=== PATIENT | male | born 1960 | race Caucasian/White ===

== ENCOUNTER 2018-06-05 12:31 | Emergency (ER) | payer MEDICARE, OTHER ==
[2018-06-05 12:48] VITALS: BP 130/77; PULSE 91; RESP 18; TEMP 98
--- NOTE | 2018-06-05 13:24 | ED ---
General Adult HPI - General Chief complaint: Extremity Injury, Lower Stated complaint: RT HIP PAIN, STATES PIN IS COMING OUT Time Seen by Provider: 06/05/18 13:02 Source: patient, RN notes reviewed Mode of arrival: ambulatory Limitations: no limitations - History of Present Illness Initial comments: Patient 57-year-old male presented to the emergency room today with a chief complaint of a pain to the right hip. He does admit that he had a fracture of the right hip and had a maynor placed in 2005. He states that the pain has come loose and needs to be taken out. He does admit that he went to the urgent care recently had an x-ray obtained and was advised that he needs follow-up orthopedics. States came here to the emergency room for further evaluation. Patient denies any other complaints or symptoms. Denies any injury to the area. Patient denies any recent fever, chills, shortness of breath, chest pain, back pain, abdominal pain, nausea or vomiting, numbness or tingling, changes, or any other complaints. - Related Data Allergies Allergy/AdvReac Type Severity Reaction Status Date / Time No Known Allergies Allergy Verified 06/05/18 12:48 Review of Systems ROS Statement: Those systems with pertinent positive or pertinent negative responses have been documented in the HPI. ROS Other: All systems not noted in ROS Statement are negative. Past Medical History Additional Past Medical History / Comment(s): chronic back and neck pain History of Any Multi-Drug Resistant Organisms: None Reported Past Surgical History: Orthopedic Surgery Additional Past Surgical History / Comment(s): right hip surgery Past Psychological History: No Psychological Hx Reported Smoking Status: Current every day smoker Past Alcohol Use History: None Reported Past Drug Use History: None Reported General Exam - General Exam Comments Initial Comments: General: The patient is awake and alert, in no distress, and does not appear acutely ill. Neck: The neck is supple, there is no tenderness or JVD. Musculoskeletal: Patient does have abnormal appearance of the right hip with skin tenting of part of possible prostheses. Local tenderness. Full range motion. Sensation intact. Neurological: A&O x 3. CN II-XII intact, There are no obvious motor or sensory deficits. Coordination appears grossly intact. Speech is normal. Skin: Skin is warm and dry and no rashes or lesions are noted. Psychiatric: Normal mood and affect. Limitations: no limitations Course Vital Signs 06/05/18 12:43 Temperature 98.0 F Pulse Rate 91 Respiratory 18 Rate Blood Pressure 130/77 O2 Sat by Pulse 100 Oximetry Medical Decision Making - Medical Decision Making Patient's x-rays reviewed and are that appears to have come loose. Results were discussed with the patient. He is advised that he needs to follow up with his orthopedic doctor. Disposition Clinical Impression: Hip pain Narrative: loosening of hardware of right hip Disposition: HOME SELF-CARE Instructions: Hip Pain (ED) Additional Instructions: Please follow-up with orthopedic doctor over the next 2 days as discussed. Please return to emergency room for any other concerns. Is patient prescribed a controlled substance at d/c from ED?: No Referrals: None,Stated [Primary Care Provider] - 1-2 days Mann Kline MD [REFERRING] - 1-2 days Time of Disposition: 14:08
--- NOTE | 2018-06-05 13:48 | XR ---
EXAMINATION TYPE: AP view pelvis and 2 views right hip DATE OF EXAM: 06/05/2018 COMPARISON: NONE HISTORY: 57-year-old male right hip pain for 2 weeks, surgery in 2005. FINDINGS: Osteopenia. Mild degenerative change of both hips. No displaced fractures are identified. Antegrade i ntramedullary nail within the right femur with hip screw fixation. There hip screw has backed out and tents the overlying skin surface of the lateral upper thigh. The tip of the screw is located nearly 4.5 cm away from the central articular surface of the femoral head. No displaced fractures. IMPRESSION: Osteopenia without displaced fractures. Mild degenerative change of both hips. Previous intertrochanteric fixation of the proximal right femur. There seems to be complication with the hip screw backed out and the proximal portion of the screw tenting the overlying skin surface.
--- NOTE | 2018-06-05 14:10 | ED ---
Disposition Clinical Impression: Hip pain Disposition: HOME SELF-CARE Instructions: Hip Pain (ED) Additional Instructions: Please follow-up with orthopedic doctor over the next 2 days as discussed. Please return to emergency room for any other concerns. Is patient prescribed a controlled substance at d/c from ED?: No Referrals: None,Stated [Primary Care Provider] - 1-2 days
== END 2018-06-05 14:15 | disposition home or self-care (01) ==
LOC: EC 12:31
DX: M25.551 Pain in right hip (principal); T84.030A Mechanical loosening of internal right hip prosthetic joint, initial encounter; F17.200 Nicotine dependence, unspecified, uncomplicated
CPT/HCPCS: 73502; 99283

== ENCOUNTER 2020-07-29 15:52 | Observation (INO) | payer MEDICARE ==
[2020-07-29] MEDS ORDERED: DILTIAZEM DRIP BOLUS FROM BAG 1 MG SOLN IV ONE (16:08)
[2020-07-29 16:21] LABS: Basophils # (A) 0.1 k/uL (0-0.2); Basophils % (A) 1 %; Eosinophils # (A) 0.1 k/uL (0-0.7); Eosinophils % (A) 1 %; HCT 45.6 % (39.0-53.0); HGB 14.7 gm/dL (13.0-17.5); Lymphocytes # (A) 2.4 k/uL (1.0-4.8); Lymphocytes % (A) 32 %; MCH 30.8 pg (25.0-35.0); MCHC 32.3 g/dL (31.0-37.0); MCV 95.4 fL (80.0-100.0); Mean Platelet Volume 7.4; Monocytes # (A) 0.4 k/uL (0-1.0); Monocytes % (A) 5 %; Neutrophils # (A) 4.4 k/uL (1.3-7.7); Neutrophils % (A) 58 %; Platelet Count 222 k/uL (150-450); RBC 4.78 m/uL (4.30-5.90); RDW 13.5 % (11.5-15.5); WBC 7.5 k/uL (3.8-10.6)
[2020-07-29] MEDS: DILTIAZEM 125 MG in SODIUM CHLORIDE 0.9% 100 ML IV SCH (16:28)
[2020-07-29 16:31] LABS: ALT 18 U/L (4-49); AST 46 U/L (17-59); African American GFR (CKD) >90 (>60 ml/min/1.73 sqM); Albumin 4.2 g/dL (3.5-5.0); Alkaline Phosphatase 80 U/L (38-126); Anion Gap 6 mmol/L; Blood Urea Nitrogen 13 mg/dL (9-20); Calcium 8.8 mg/dL (8.4-10.2); Carbon Dioxide 28 mmol/L (22-30); Chloride 103 mmol/L (98-107); Glucose 143 mg/dL (74-99); Magnesium 2.1 mg/dL (1.6-2.3); Non-African American GFR(CKD) >90 (>60 ml/min/1.73 sqM); Potassium 4.4 mmol/L (3.5-5.1); Sodium 137 mmol/L (137-145); Total Bilirubin 0.5 mg/dL (0.2-1.3); Total Protein 7.5 g/dL (6.3-8.2)
--- NOTE | 2020-07-29 16:33 | XR ---
EXAMINATION TYPE: XR chest 2V DATE OF EXAM: 07/29/2020 COMPARISON: 01/30/2012 and 05/12/2016 HISTORY: 59-year-old male dysrhythmia, shortness of breath TECHNIQUE: AP and lateral views FINDINGS: Heart normal size. Aorta within normal limits. Some upper lobe scarring is new from 2011 with some up ayala hilar retraction and pleural parenchymal opacities. Mid and lower lungs remain clear. Hyperinfla tion. IMPRESSION: 1. COPD with marked emphysema. 2. Apical pleural parenchymal opacities are new compared to 2016. Probable scarring. Nonemergent foll ow-up CT recommended to provide more detailed parenchymal assessment given the patient's increased ri sk for development of lung cancer.
[2020-07-29 16:36] LABS: D-Dimer 0.54 mg/L FEU (<0.60); INR 0.9 (<1.2); Prothrombin Time 9.7 sec (9.0-12.0)
--- NOTE | 2020-07-29 16:40 | ED ---
SOB HPI - General Chief Complaint: Shortness of Breath Stated Complaint: Tachycardia, SOB Time Seen by Provider: 07/29/20 16:05 Source: patient, EMS Mode of arrival: EMS Limitations: no limitations - History of Present Illness Initial Comments: Patient is a 59-year-old male with history of chronic neck and back pain and presents emergency room with reported shortness of breath. He reports that his symptoms are sudden onset 1 hour ago while he was in an elevator. States he felt so lightheaded that when he got out of the elevator he had to lay down. No history of similar in the past. Denies previous history of cardiac or pulmonary issues. Denies any chest pain. No ripping or tearing sensation to his back. Admits to palpitations. No nausea or vomiting. Denies any lower extremity edema. No history of irregular heart rhythms. Patient is a smoker. No history of DVT or PE. No recent travel. No other alleviating, Perceptin or modifying factors - Related Data Home Medications Medication Instructions Recorded Confirmed oxyCODONE HCL [OxyIR] 5 mg PO QID 07/29/20 07/29/20 Previous Rx's Medication Instructions Recorded Apixaban [Eliquis] 5 mg PO BID #60 tab 07/30/20 Allergies Allergy/AdvReac Type Severity Reaction Status Date / Time No Known Allergies Allergy Verified 07/29/20 16:59 Review of Systems ROS Statement: Those systems with pertinent positive or pertinent negative responses have been documented in the HPI. ROS Other: All systems not noted in ROS Statement are negative. Past Medical History Additional Past Medical History / Comment(s): chronic back and neck pain History of Any Multi-Drug Resistant Organisms: None Reported Past Surgical History: Orthopedic Surgery Additional Past Surgical History / Comment(s): right hip surgery Past Psychological History: No Psychological Hx Reported Smoking Status: Current every day smoker Past Alcohol Use History: None Reported, Occasional - Past Family History Father Family Medical History: Myocardial Infarction ([place]) Brother(s) Family Medical History: Myocardial Infarction ([place]) General Exam Limitations: no limitations General appearance: alert, in no apparent distress Head exam: Present: atraumatic, normocephalic, normal inspection Eye exam: Present: normal appearance, PERRL, EOMI. Absent: scleral icterus, conjunctival injection, periorbital swelling ENT exam: Present: normal exam, mucous membranes moist Neck exam: Present: normal inspection. Absent: tenderness, meningismus, lymphadenopathy Respiratory exam: Present: normal lung sounds bilaterally. Absent: respiratory distress, wheezes, rales, rhonchi, stridor Cardiovascular Exam: Present: tachycardia, irregular rhythm GI/Abdominal exam: Present: soft, normal bowel sounds. Absent: distended, tenderness, guarding, rebound, rigid Extremities exam: Present: normal inspection, full ROM, normal capillary refill. Absent: tenderness, pedal edema, joint swelling, calf tenderness Back exam: Present: normal inspection Neurological exam: Present: alert, oriented X3, CN II-XII intact Psychiatric exam: Present: normal affect, normal mood Skin exam: Present: warm, dry, intact, normal color. Absent: rash Course Vital Signs 07/29/20 07/29/20 07/29/20 16:04 16:42 17:53 Temperature 97.9 F Pulse Rate 154 H 108 H Pulse Rate [ Pulse Oximetery ] Respiratory 18 18 16 Rate Blood Pressure 116/83 111/75 Blood Pressure [Right Arm] O2 Sat by Pulse 100 100 Oximetry 07/29/20 07/29/20 07/30/20 20:00 23:13 03:12 Temperature 97.8 F 97.8 F 97.3 F L Pulse Rate Pulse Rate [ 95 79 74 Pulse Oximetery ] Respiratory 16 16 12 Rate Blood Pressure Blood Pressure 109/69 117/67 99/68 [Right Arm] O2 Sat by Pulse 99 99 Oximetry 07/30/20 07/30/20 07/30/20 04:00 05:26 08:00 Temperature Pulse Rate Pulse Rate [ 75 65 Pulse Oximetery ] Respiratory 12 12 16 Rate Blood Pressure Blood Pressure 110/68 110/66 [Right Arm] O2 Sat by Pulse 99 98 Oximetry 07/30/20 07/30/20 09:24 12:00 Temperature 97.5 F L 97.4 F L Pulse Rate Pulse Rate [ 95 Pulse Oximetery ] Respiratory 18 Rate Blood Pressure Blood Pressure 107/74 [Right Arm] O2 Sat by Pulse 99 Oximetry Medical Decision Making - Medical Decision Making Upon arrival patient is placed into room 6. A thorough history and physical exam was performed. Patient is hooked to continuous pulse ox and cardiac monitoring. 12-lead EKG was performed which demonstrates the patient is in A. fib with RVR. Peripheral IV is established. Patient was initiated on a Cardizem drip with a Cardizem bolus of 10 mg. Laboratory studies were conducted and the patient was sent for chest x-ray. Laboratory studies are reviewed. TSH is 0.3. T4 is 1.48. Chest x-ray demonstrates COPD with marked emphysema. Discuss results with the patient. Recommend admission to the hospital for cardiac consultation. Patient will be maintained on a Cardizem drip. Patient is also initiated on heparin as he has no contra indications. Patient remained in stable condition awaiting a bed on the floor - Lab Data Result diagrams: 07/31/20 06:30 07/31/20 06:30 Lab Results 07/29/20 07/29/20 07/29/20 Range/Units 16:09 16:09 16:09 WBC 7.5 (3.8-10.6) k/uL RBC 4.78 (4.30-5.90) m/uL Hgb 14.7 (13.0-17.5) gm/dL Hct 45.6 (39.0-53.0) % MCV 95.4 (80.0-100.0) fL MCH 30.8 (25.0-35.0) pg MCHC 32.3 (31.0-37.0) g/dL RDW 13.5 (11.5-15.5) % Plt Count 222 (150-450) k/uL Neutrophils % 58 % Lymphocytes % 32 % Monocytes % 5 % Eosinophils % 1 % Basophils % 1 % Neutrophils # 4.4 (1.3-7.7) k/uL Lymphocytes # 2.4 (1.0-4.8) k/uL Monocytes # 0.4 (0-1.0) k/uL Eosinophils # 0.1 (0-0.7) k/uL Basophils # 0.1 (0-0.2) k/uL PT 9.7 (9.0-12.0) sec INR 0.9 (<1.2) APTT 21.1 L (22.0-30.0) sec D-Dimer 0.54 (<0.60) mg/L FEU Sodium 137 (137-145) mmol/L Potassium 4.4 (3.5-5.1) mmol/L Chloride 103 (98-107) mmol/L Carbon Dioxide 28 (22-30) mmol/L Anion Gap 6 mmol/L BUN 13 (9-20) mg/dL Creatinine 0.73 (0.66-1.25) mg/dL Est GFR (CKD-EPI)AfAm >90 (>60 ml/min/1.73 sqM) Est GFR (CKD-EPI)NonAf >90 (>60 ml/min/1.73 sqM) Glucose 143 H (74-99) mg/dL Calcium 8.8 (8.4-10.2) mg/dL Magnesium 2.1 (1.6-2.3) mg/dL Total Bilirubin 0.5 (0.2-1.3) mg/dL AST 46 (17-59) U/L ALT 18 (4-49) U/L Alkaline Phosphatase 80 (38-126) U/L Troponin I (0.000-0.034) ng/mL Total Protein 7.5 (6.3-8.2) g/dL Albumin 4.2 (3.5-5.0) g/dL TSH 0.341 L (0.465-4.680) mIU/L Free T4 1.48 (0.78-2.19) ng/dL 07/29/20 Range/Units 16:09 WBC (3.8-10.6) k/uL RBC (4.30-5.90) m/uL Hgb (13.0-17.5) gm/dL Hct (39.0-53.0) % MCV (80.0-100.0) fL MCH (25.0-35.0) pg MCHC (31.0-37.0) g/dL RDW (11.5-15.5) % Plt Count (150-450) k/uL Neutrophils % % Lymphocytes % % Monocytes % % Eosinophils % % Basophils % % Neutrophils # (1.3-7.7) k/uL Lymphocytes # (1.0-4.8) k/uL Monocytes # (0-1.0) k/uL Eosinophils # (0-0.7) k/uL Basophils # (0-0.2) k/uL PT (9.0-12.0) sec INR (<1.2) APTT (22.0-30.0) sec D-Dimer (<0.60) mg/L FEU Sodium (137-145) mmol/L Potassium (3.5-5.1) mmol/L Chloride (98-107) mmol/L Carbon Dioxide (22-30) mmol/L Anion Gap mmol/L BUN (9-20) mg/dL Creatinine (0.66-1.25) mg/dL Est GFR (CKD-EPI)AfAm (>60 ml/min/1.73 sqM) Est GFR (CKD-EPI)NonAf (>60 ml/min/1.73 sqM) Glucose (74-99) mg/dL Calcium (8.4-10.2) mg/dL Magnesium (1.6-2.3) mg/dL Total Bilirubin (0.2-1.3) mg/dL AST (17-59) U/L ALT (4-49) U/L Alkaline Phosphatase (38-126) U/L Troponin I <0.012 (0.000-0.034) ng/mL Total Protein (6.3-8.2) g/dL Albumin (3.5-5.0) g/dL TSH (0.465-4.680) mIU/L Free T4 (0.78-2.19) ng/dL - EKG Data EKG Comments: EKG demonstrates A. fib with a rapid ventricular response. Rate of 151. QRS 88. QTC of 472. Peaked T waves in V3 through the 5. No acute ST segment elevation Critical Care Time Critical Care Time: Yes Critical Care Time: 35 minutes Disposition Clinical Impression: Atrial fibrillation with RVR Disposition: ADMITTED IP TO THIS HOSP Condition: Stable Is patient prescribed a controlled substance at d/c from ED?: No Decision to Admit Reason: Admit from EC Decision Date: 07/29/20 Decision Time: 17:24
[2020-07-29 16:46] LABS: Partial Thromboplastin Time 21.1 sec (22.0-30.0)
[2020-07-29] MEDS ORDERED: NALOXONE 0.4 MG/ML 1 ML VIAL IV PRN (17:24)
[2020-07-29] MEDS ORDERED: HEPARIN SODIUM,PORCINE 5,000 UNIT/ML 1 ML VIAL IV ONE (17:25)
[2020-07-29] MEDS ORDERED: HEPARIN SODIUM,PORCINE 5,000 UNIT/ML 1 ML VIAL IV PRN (17:25)
[2020-07-29] MEDS ORDERED: HEPARIN SOD,PORK IN 0.45% NACL 25,000 UNIT in 0.45% NACL 1 250ML.BAG IV SCH (17:30)
[2020-07-29 17:39] LABS: T4, Free (Free Thyroxine) 1.48 ng/dL (0.78-2.19)
[2020-07-29] MEDS: SODIUM CHLORIDE 0.9% 1,000 ML IV SCH (17:53)
[2020-07-30 09:20] LABS: Basophils # (A) 0.1 k/uL (0-0.2); Basophils % (A) 1 %; Eosinophils # (A) 0.1 k/uL (0-0.7); Eosinophils % (A) 1 %; HCT 42.7 % (39.0-53.0); HGB 13.7 gm/dL (13.0-17.5); Lymphocytes # (A) 2.6 k/uL (1.0-4.8); Lymphocytes % (A) 33 %; MCH 30.9 pg (25.0-35.0); MCV 96.6 fL (80.0-100.0); Mean Platelet Volume 7.5; Monocytes # (A) 0.4 k/uL (0-1.0); Monocytes % (A) 5 %; Neutrophils # (A) 4.7 k/uL (1.3-7.7); Neutrophils % (A) 59 %; Platelet Count 194 k/uL (150-450); RBC 4.43 m/uL (4.30-5.90); RDW 13.6 % (11.5-15.5); WBC 7.9 k/uL (3.8-10.6)
[2020-07-30 09:31] LABS: Partial Thromboplastin Time 50.9 sec (22.0-30.0); Prothrombin Time 10.2 sec (9.0-12.0)
[2020-07-30 09:37] LABS: African American GFR (CKD) >90 (>60 ml/min/1.73 sqM); Anion Gap 5 mmol/L; Blood Urea Nitrogen 11 mg/dL (9-20); Calcium 8.1 mg/dL (8.4-10.2); Carbon Dioxide 28 mmol/L (22-30); Chloride 102 mmol/L (98-107); Glucose 89 mg/dL (74-99); Non-African American GFR(CKD) >90 (>60 ml/min/1.73 sqM); Potassium 4.4 mmol/L (3.5-5.1); Sodium 135 mmol/L (137-145)
--- NOTE | 2020-07-30 10:44 | P.HPIM ---
History of Present Illness This is a pleasant 59 years old male with past medical history of chronic back and neck pain status post orthopedic surgery. Presents because of dyspnea and lightheadedness and feeling feverish with sweating of one-day duration, however patient does not measure his temperature. Patient denies chest pain, no change in urine or bowel habits. No loss of consciousness or syncope. No weakness or numbness. No gait abnormality. Patient is not on home oxygen. He smokes about 1 pack per day, his consult and he agrees to quit, he declines nicotine patch On admission patient was tachycardic at 154, currently heart rate is 70s, re spiratory vitals are stable, blood pressure 110/68. Labs including CBC, BMP, liver enzymes are unremarkable. D-dimer is negative at 0.54. Troponin is negative less than 0.012. TSH slightly low at 0.34 with with normal free T4 at 1.48 EKG showing A. fib with RVR at 151 chest x-ray: apical pleural parenchymal opacity of the new compared to 2016, probable scarring. Nonemergent follow-up CT recommended to provide more detailed parenchymal assessment Patient stated that he wanted to leave AMA, I told the patient about his lesions of A. fib and apical thickening concerning for cancer, risks of leaving AMA explained to the patient extensively including but not limited to the risk of stroke, rapid heart rate, heart attack, paralysis, or permanent damage, missing cancer, organ dysfunction and/or he verbalized understanding, however when I told him if there is any think I can do to stop him from leaving AMA he said yes if you can give me male. So diet is ordered for him and discussed with the staff. Patient agrees to stay in the hospital now. It looks like patient has capacity to make medical decision based upon my evaluation. Patient also understands if he leans AMA later then no prescription will be provided for him and he verbalized understanding Review of Systems CONSTITUTIONAL: No fever, no malaise, no fatigue. HEENT: No recent visual problems or hearing problems. Denied any sore throat. CARDIOVASCULAR: No orthopnea, PND, no palpitations, no syncope. PULMONARY: No shortness of breath, no cough, no hemoptysis. GASTROINTESTINAL: No diarrhea, no nausea, no vomiting, no abdominal pain. Normoactive bowel sounds. NEUROLOGICAL: No headaches, no weakness, no numbness. HEMATOLOGICAL: Denies any bleeding or petechiae. GENITOURINARY: Denies any burning micturition, frequency, or urgency. MUSCULOSKELETAL/RHEUMATOLOGICAL: Denies any joint pain, swelling, or any muscle pain. ENDOCRINE: Denies any polyuria or polydipsia. Past Medical History Additional Past Medical History / Comment(s): chronic back and neck pain History of Any Multi-Drug Resistant Organisms: None Reported Past Surgical History: Orthopedic Surgery Additional Past Surgical History / Comment(s): right hip surgery Past Anesthesia/Blood Transfusion Reactions: No Reported Reaction Past Psychological History: No Psychological Hx Reported Smoking Status: Current every day smoker Past Alcohol Use History: Occasional Past Drug Use History: Marijuana - Past Family History Father Family Medical History: Myocardial Infarction ([place]) Brother(s) Family Medical History: Myocardial Infarction ([place]) Medications and Allergies Home Medications Medication Instructions Recorded Confirmed Type oxyCODONE HCL [OxyIR] 5 mg PO QID 07/29/20 07/29/20 History Allergies Allergy/AdvReac Type Severity Reaction Status Date / Time No Known Allergies Allergy Verified 07/29/20 16:59 Physical Exam Vitals: Vital Signs Temp Pulse Pulse Resp BP BP Pulse Ox 07/30/20 05:26 75 12 110/68 99 07/30/20 04:00 12 07/30/20 03:12 97.3 F L 74 12 99/68 99 07/29/20 23:13 97.8 F 79 16 117/67 99 07/29/20 20:00 97.8 F 95 16 109/69 07/29/20 17:53 108 H 16 111/75 100 07/29/20 16:42 18 07/29/20 16:04 97.9 F 154 H 18 116/83 100 Intake and Output 07/29/20 07/30/20 07/30/20 22:59 06:59 14:59 Intake Total 237.012 Balance 237.012 Intake: Intake, IV Titration 237.012 Amount Diltiazem 125 mg In 40 Sodium Chloride 0.9% 100 ml @ 5 MG/HR 5 mls/hr IV .Q24H [facility] Rx#:[id number] Heparin Sod,Pork in 0.45% 37.012 NaCl 25,000 unit In 0.45 % NaCl 1 250ml.bag @ 12 UNITS/KG/HR 5.443 mls/hr IV .Q24H [facility] Rx#: [id number] Sodium Chloride 0.9% 1, 160 000 ml @ 20 mls/hr IV . Q24H [facility] Rx#:[id number] Other: Voiding Method Urinal Weight 45.359 kg 45.359 kg -GENERAL: The patient is alert and oriented x3, not in any acute distress. Thin built HEENT: Pupils are round and equally reacting to light. EOMI. No scleral icterus. No conjunctival pallor. Normocephalic, atraumatic. No pharyngeal erythema. No thyromegaly. CARDIOVASCULAR: S1 and S2 present. No murmurs, rubs, or gallops. PULMONARY: Chest is clear to auscultation, no wheezing or crackles. ABDOMEN: Soft, nontender, nondistended, normoactive bowel sounds. No palpable organomegaly. MUSCULOSKELETAL: No joint swelling or deformity. EXTREMITIES: No cyanosis, clubbing, or pedal edema. NEUROLOGICAL: Gross neurological examination did not reveal any focal deficits. SKIN: No rashes. No petechiae Results CBC & Chem 7: 07/30/20 08:41 07/30/20 08:41 Labs: Abnormal Lab Results - Last 24 Hours (Table) 07/29/20 07/29/20 07/29/20 Range/Units 16:09 16:09 23:58 APTT 21.1 L 37.2 H (22.0-30.0) sec Glucose 143 H (74-99) mg/dL TSH 0.341 L (0.465-4.680) mIU/L Thrombosis Risk Factor Assmnt - Choose All That Apply Any of the Below Risk Factors Present?: Yes Each Factor Represents 1 point: Age 41-60 years Other Risk Factors: No Thrombosis Risk Factor Assessment Total Risk Factor Score: 1 Thrombosis Risk Factor Assessment Level: Low Risk Assessment and Plan Assessment: A. fib and RVR Acute dyspnea, possibly secondary to above. Rule out pulmonary causes. Negative d-dimer at 0.44 Epical pleural opacity, could be scarring Nicotine dependence Noncompliance Substance abuse with cannabis Chronic back and neck pain, status post orthopedic surgery Plan: This is a pleasant 59 years old male who presents with A. fib and dyspnea.Continue with Cardizem drip, continue with heparin drip/Eliquis per senior scheduler recommendation. Cardiology consult. Also consult pulmonary service for abnormal chest x-ray and dyspnea. Resume diet. horticultural farmworker consult for Eliquis co-pay Labs and medication were reviewed.. Continue same treatment. Continue with symptomatic treatment. Resume home medication. Monitor lytes and vitals. DVT and GI prophylaxis. Further recommendations depends on the clinical course of the patient DVT prophylaxis: Eliquis GI Prophylaxis: Pepcid Prognosis is guarded
--- NOTE | 2020-07-30 11:25 | CONS ---
CONSULTATION CHIEF COMPLAINT: Shortness of breath and palpitations. HISTORY OF PRESENT ILLNESS: Nelson is a 59-year-old gentleman with no significant past medical history, who presented to hospital with shortness of breath and was found to be in atrial fibrillation with rapid ventricular rate. Cardiology consult requested for the same. Heart rate was 150 beats per minute, started on intravenous Cardizem, heparin and his heart rate is better controlled. At the time of my evaluation, he appears comfortable at rest and is free of symptoms. There is no prior history of hypertension, diabetes, dyslipidemia. There is no history of coronary artery disease or congestive heart failure. The patient did not have previous episodes of atrial fibrillation. His TSH is low, but the free T4 is within normal limits. PAST MEDICAL HISTORY: Negative for hypertension, diabetes, dyslipidemia. MEDICATIONS: None. ALLERGIES: None. FAMILY HISTORY: Negative for premature coronary artery disease. SOCIAL HISTORY: Significant for smoking. There is no history of EtOH abuse or drug abuse. REVIEW OF SYSTEMS: HEENT is unremarkable. CARDIAC as described above. RESPIRATORY as described above. GI negative. GENITOURINARY negative. ALLERGY/IMMUNOLOGY: Negative. SKIN negative. MUSCULOSKELETAL: Significant for arthritis. PSYCHOSOCIAL negative. ENDOCRINE negative. DERM: Negative. CONSTITUTIONAL negative. HEMATOLOGICAL negative. Rest of the system review is not relevant. PHYSICAL EXAMINATION: On exam, patient is comfortable at rest. Afebrile. Heart rate is 65 beats per minute. Blood pressure is 110/66, respiratory is 18. O2 saturation is 98% on 2 L. There is no jugular venous distention. Carotid upstroke is normal. There is no bruit. CHEST exam reveals good air entry bilaterally. HEART exam reveals first and second heart sounds, irregular rhythm. ABDOMEN is soft. Exam of EXTREMITIES did not reveal any edema. Peripheral pulses are felt. LABORATORY DATA: Lab show a hemoglobin of 13.7, platelet count is 194. Potassium is 4.4 creatinine is 0.7. Troponin is negative. D-dimer is negative. ASSESSMENT: Persistent atrial fibrillation, new onset with rapid ventricular rate. PLAN: I am going to stop the IV Cardizem, put him on Toprol-XL 50 mg daily and Eliquis 5 mg b.i.d. The patient needs to be on oral anticoagulant for 3 weeks and I will bring him back and perform a AMENA and cardioversion. The patient is threatening to leave AGAINST MEDICAL ADVICE. I advised him to stay in. If he goes, arrange follow up with me. I will obtain a 2D echo. NADINE / SHANITAN: [id number] /
[2020-07-30] MEDS: APIXABAN 5 MG TAB PO SCH ×2 (12:03→21:58)
[2020-07-30] MEDS: METOPROLOL SUCCINATE (ER) 50 MG TAB.ER.24H PO SCH (12:03)
[2020-07-30 14:26] VITALS: BMI 15.2
--- NOTE | 2020-07-30 18:41 | ECHOF ---
Referral Reason:afib MEASUREMENTS -------- HEIGHT: 172.7 cm WEIGHT: 45.4 kg BP: RVIDd: 3.3 cm (< 3.3) IVSd: 0.6 cm (0.6 - 1.1) LVIDd: 3.8 cm (3.9 - 5.3) LVPWd: 0.9 cm (0.6 - 1.1) IVSs: 1.1 cm LVIDs: 2.7 cm LVPWs: 1.3 cm LA Diam: 3.1 cm (2.7 - 3.8) MV EXCURSION: 27.354 mm (> 18.000) MV EF SLOPE: 86 mm/s (70 - 150) EPSS: 1.8 cm MV E Edwin: 1.05 m/s MV DecT: 127 ms MV A Edwin: 0.31 m/s MV E/A Ratio: 3.35 RAP: 5.00 mmHg RVSP: 11.80 mmHg FINDINGS -------- Undetermined rhythm. This was a technically good study. LV size, wall thickness and systolic function are normal, with an EF greater than 55%. The left dariel tricular size is normal. The right ventricle is normal in size. The left atrial size is normal. The right atrial size is normal. There is mild aortic valve sclerosis. There is no evidence of aortic regurgitation. Mild mitral annular calcification present. Mild mitral regurgitation is present. Mild tricuspid regurgitation present. Right ventricular systolic pressure is normal at < 35 mmHg. There is no pulmonic regurgitation present. The aortic root size is normal. There is no pericardial effusion. CONCLUSIONS -------- 1. LV size, wall thickness and systolic function are normal, with an EF greater than 55%. 2. The left ventricular size is normal. 3. The right ventricle is normal in size. 4. The left atrial size is normal. 5. The right atrial size is normal. 6. There is mild aortic valve sclerosis. 7. Mild mitral annular calcification present. 8. Mild mitral regurgitation is present. 9. Mild tricuspid regurgitation present. 10. There is no pulmonic regurgitation present. 11. The aortic root size is normal. 12. There is no pericardial effusion. PLATFORM ATTENDANT: Raquel Baig RDCS
[2020-07-30] MEDS: DILTIAZEM 125 MG in SODIUM CHLORIDE 0.9% 100 ML IV SCH (18:56)
[2020-07-30] MEDS: SODIUM CHLORIDE 0.9% 1,000 ML IV SCH (18:57)
[2020-07-30] MEDS: FAMOTIDINE 20 MG/2 ML VIAL IV SCH (21:58)
[2020-07-31 07:16] LABS: Basophils % (A) 0 %; Eosinophils # (A) 0.1 k/uL (0-0.7); Eosinophils % (A) 2 %; HCT 42.1 % (39.0-53.0); HGB 13.7 gm/dL (13.0-17.5); Lymphocytes # (A) 1.9 k/uL (1.0-4.8); Lymphocytes % (A) 33 %; MCH 31.3 pg (25.0-35.0); MCHC 32.4 g/dL (31.0-37.0); MCV 96.6 fL (80.0-100.0); Mean Platelet Volume 8.1; Monocytes # (A) 0.3 k/uL (0-1.0); Monocytes % (A) 6 %; Neutrophils # (A) 3.4 k/uL (1.3-7.7); Neutrophils % (A) 58 %; Platelet Count 195 k/uL (150-450); RBC 4.36 m/uL (4.30-5.90); RDW 13.4 % (11.5-15.5); WBC 5.9 k/uL (3.8-10.6)
[2020-07-31 07:25] LABS: African American GFR (CKD) >90 (>60 ml/min/1.73 sqM); Anion Gap 2 mmol/L; Blood Urea Nitrogen 14 mg/dL (9-20); Calcium 8.9 mg/dL (8.4-10.2); Carbon Dioxide 33 mmol/L (22-30); Chloride 99 mmol/L (98-107); Glucose 93 mg/dL (74-99); Non-African American GFR(CKD) >90 (>60 ml/min/1.73 sqM); Potassium 5.1 mmol/L (3.5-5.1); Sodium 134 mmol/L (137-145)
[2020-07-31 08:17] VITALS: BP 119/70; PULSE 80; TEMP 97.9
[2020-07-31] MEDS: METOPROLOL SUCCINATE (ER) 50 MG TAB.ER.24H PO SCH (08:36)
[2020-07-31] MEDS: FAMOTIDINE 20 MG/2 ML VIAL IV SCH (08:36)
[2020-07-31] MEDS: APIXABAN 5 MG TAB PO SCH (08:36)
[2020-07-31 08:48] VITALS: RESP 16
--- NOTE | 2020-08-25 20:08 | P.DS ---
Providers Date of admission: 07/29/20 17:24 Attending physician: Marcos Stewart Consults: 07/29/20 17:25 Consult Physician Urgent Consulting Provider: [facility] Consult Reason/Comments: new onset afib Do you want consulting provider notified?: Yes 07/30/20 10:40 Consult Physician Routine Consulting Provider: Cuong Bird Consult Reason/Comments: Local thickeningpleural thickening Do you want consulting provider notified?: Yes Primary care physician: Stated None Hospital Course: Please note this is not a discharge summary as patient was not discharged but he left AMA Please note I saw the patient on 07/30, Dr. Wu took over the care of the patient next day on 07/31. And I'm writing the discharge summary on her behalf as I was off service that date. On reviewing the chart looks like the patient signed leaving AMA. On the day before going I saw the patient for the H&P also patient wanted to leave AMA however I explained the risks, benefits and alternative for him and he verbalized understanding and at that time he accepted to stay in the hospital if meal is provided for him which is ordered however reviewing the records it looks like the patient decided to leave AMA again on 07/31 at 9:58 am Please refer to my H&P for more details Based upon my evaluation on the day earlier patient has capacity to make medical decision Patient Condition at Discharge: Stable Plan - Discharge Summary Discharge Rx Participant: No New Discharge Prescriptions: New Apixaban [Eliquis] 5 mg PO BID #60 tab No Action oxyCODONE HCL [OxyIR] 5 mg PO QID Discharge Medication List oxyCODONE HCL [OxyIR] 5 mg PO QID 07/29/20 [History] Apixaban [Eliquis] 5 mg PO BID #60 tab 07/30/20 [Rx] Follow up Appointment(s)/Referral(s): None,Stated [Primary Care Provider] - 1-2 days Dominguez Jerome MD [STAFF PHYSICIAN] - 1 Week Patient Instructions/Handouts: A-fib (Atrial Fibrillation) (DC) Activity/Diet/Wound Care/Special Instructions: Eliquis filled at [facility] [employer] is $8.95 HEART HEALTHY DIET ACTIVITY TOLERATED Discharge Disposition: Left Against Medical Advice
== END 2020-07-31 10:00 | disposition left against medical advice (07) ==
LOC: EC 15:52 → 3SCARD 17:24 → INTOOBSV 17:24 → 3SCARD 22:13 → UNDODISIN 07-31 10:00
PROVIDERS: ADMIT Hospitalist; ATTEND Hospitalist
DX: I48.19 Other persistent atrial fibrillation (principal); J43.9 Emphysema, unspecified; Z53.29 Procedure and treatment not carried out because of patient's decision for other reasons; G89.29 Other chronic pain; M54.9 Dorsalgia, unspecified; M54.2 Cervicalgia; Z91.19 Patient's noncompliance with other medical treatment and regimen; F17.210 Nicotine dependence, cigarettes, uncomplicated; Z98.890 Other specified postprocedural states; Z82.49 Family history of ischemic heart disease and other diseases of the circulatory system; Z79.01 Long term (current) use of anticoagulants
CPT/HCPCS: 96376 ×3; 96375; 96368; 96365; 96366 ×2; 99285; 36415; 93005; 93306; 85379; 84439; 80053; 80048 ×2; 84443; 83735; 84484; 85025 ×3; 85610 ×2; 85730 ×2; 71046; G0378 ×3; J1644 ×3

== ENCOUNTER 2020-10-04 16:17 | Observation (INO) | payer MEDICARE ==
[2020-10-04] MEDS ORDERED: SODIUM CHLORIDE 0.9% 1,000 ML IV STA (16:53)
--- NOTE | 2020-10-04 16:56 | ED ---
General Adult HPI - General Chief complaint: Arrhythmia/Palpitations Stated complaint: Sent by dr Kandis Omalley Heart Rate Time Seen by Provider: 10/04/20 16:31 Source: patient, RN notes reviewed Mode of arrival: ambulatory Limitations: no limitations - History of Present Illness Initial comments: Patient is a pleasant 40-year-old male presenting to the emergency Department with complaints of palpitations. Patient did go to cardiology today and was advised come to emergency department. Patient does have history of atrial fibrillation with previous symptoms diagnosed in July. No chest pain or dyspnea. Patient is currently on anticoagulation. - Related Data Home Medications Medication Instructions Recorded Confirmed oxyCODONE HCL [OxyIR] 5 mg PO QID 07/29/20 10/04/20 Previous Rx's Medication Instructions Recorded Apixaban [Eliquis] 5 mg PO BID #60 tab 07/30/20 Allergies Allergy/AdvReac Type Severity Reaction Status Date / Time No Known Allergies Allergy Verified 10/04/20 17:03 Review of Systems ROS Statement: Those systems with pertinent positive or pertinent negative responses have been documented in the HPI. ROS Other: All systems not noted in ROS Statement are negative. Constitutional: Denies: fever Eyes: Denies: eye pain ENT: Denies: ear pain Respiratory: Denies: cough, dyspnea Cardiovascular: Reports: palpitations. Denies: chest pain Endocrine: Denies: fatigue Gastrointestinal: Denies: abdominal pain Genitourinary: Denies: dysuria Musculoskeletal: Denies: back pain Skin: Denies: lesions Neurological: Denies: weakness Past Medical History Past Medical History: Atrial Fibrillation Additional Past Medical History / Comment(s): chronic back and neck pain History of Any Multi-Drug Resistant Organisms: None Reported Past Surgical History: Orthopedic Surgery Additional Past Surgical History / Comment(s): right hip surgery Past Anesthesia/Blood Transfusion Reactions: No Reported Reaction Past Psychological History: No Psychological Hx Reported Smoking Status: Current every day smoker Past Alcohol Use History: None Reported, Occasional - Past Family History Father Family Medical History: Myocardial Infarction ([place]) Brother(s) Family Medical History: Myocardial Infarction ([place]) General Exam Limitations: no limitations General appearance: alert, in no apparent distress Head exam: Present: normocephalic Eye exam: Present: normal appearance Neck exam: Present: normal inspection Respiratory exam: Present: normal lung sounds bilaterally Cardiovascular Exam: Present: tachycardia, irregular rhythm Expanded Peripheral pulses: 2+: Radial (R), Radial (L), Dorsalis Pedis (R), Dorsalis Pedis (L) GI/Abdominal exam: Present: soft. Absent: tenderness Extremities exam: Present: normal inspection. Absent: pedal edema, calf tenderness Neurological exam: Present: alert Psychiatric exam: Present: normal affect, normal mood Skin exam: Present: normal color Course Vital Signs 10/04/20 10/04/20 10/04/20 16:25 16:41 18:04 Temperature 98.4 F Pulse Rate 123 H 148 H 142 H Respiratory 18 16 18 Rate Blood Pressure 146/71 99/72 O2 Sat by Pulse 99 98 Oximetry EKG Findings - EKG Comments: EKG Findings:: A. fib with RVR, rate 140. QRS 86. QT 306. QTc 467. Left axis. Septal Q waves. No acute ST change. Medical Decision Making - Medical Decision Making Patient reevaluated and updated. Heart rate between 125:30 on Cardizem drip. Case discussed with practitioner Maggie Hermosillo, who will admit for Dr. Stewart, for hospital call. - Lab Data Result diagrams: 10/04/20 16:41 10/04/20 16:41 Lab Results 10/04/20 10/04/20 10/04/20 Range/Units 16:41 16:41 16:41 WBC 9.1 (3.8-10.6) k/uL RBC 4.73 (4.30-5.90) m/uL Hgb 14.1 (13.0-17.5) gm/dL Hct 42.5 (39.0-53.0) % MCV 89.7 D (80.0-100.0) fL MCH 29.9 (25.0-35.0) pg MCHC 33.3 (31.0-37.0) g/dL RDW 13.0 (11.5-15.5) % Plt Count 244 (150-450) k/uL MPV 7.7 Neutrophils % 53 % Lymphocytes % 34 % Monocytes % 8 % Eosinophils % 2 % Basophils % 2 % Neutrophils # 4.8 (1.3-7.7) k/uL Lymphocytes # 3.1 (1.0-4.8) k/uL Monocytes # 0.7 (0-1.0) k/uL Eosinophils # 0.2 (0-0.7) k/uL Basophils # 0.2 (0-0.2) k/uL PT 9.7 (9.0-12.0) sec INR 0.9 (<1.2) APTT 25.9 (22.0-30.0) sec Sodium 135 L (137-145) mmol/L Potassium 4.3 (3.5-5.1) mmol/L Chloride 100 (98-107) mmol/L Carbon Dioxide 28 (22-30) mmol/L Anion Gap 7 mmol/L BUN 15 (9-20) mg/dL Creatinine 0.64 L (0.66-1.25) mg/dL Est GFR (CKD-EPI)AfAm >90 (>60 ml/min/1.73 sqM) Est GFR (CKD-EPI)NonAf >90 (>60 ml/min/1.73 sqM) Glucose 98 (74-99) mg/dL Calcium 9.2 (8.4-10.2) mg/dL Magnesium 2.0 (1.6-2.3) mg/dL Total Bilirubin 0.6 (0.2-1.3) mg/dL AST 37 (17-59) U/L ALT 19 (4-49) U/L Alkaline Phosphatase 79 (38-126) U/L Troponin I (0.000-0.034) ng/mL Total Protein 7.9 (6.3-8.2) g/dL Albumin 4.2 (3.5-5.0) g/dL Free T4 1.48 (0.78-2.19) ng/dL Free T3 pg/mL 5.6 H (2.8-5.3) pg/ml 10/04/20 Range/Units 16:41 WBC (3.8-10.6) k/uL RBC (4.30-5.90) m/uL Hgb (13.0-17.5) gm/dL Hct (39.0-53.0) % MCV (80.0-100.0) fL MCH (25.0-35.0) pg MCHC (31.0-37.0) g/dL RDW (11.5-15.5) % Plt Count (150-450) k/uL MPV Neutrophils % % Lymphocytes % % Monocytes % % Eosinophils % % Basophils % % Neutrophils # (1.3-7.7) k/uL Lymphocytes # (1.0-4.8) k/uL Monocytes # (0-1.0) k/uL Eosinophils # (0-0.7) k/uL Basophils # (0-0.2) k/uL PT (9.0-12.0) sec INR (<1.2) APTT (22.0-30.0) sec Sodium (137-145) mmol/L Potassium (3.5-5.1) mmol/L Chloride (98-107) mmol/L Carbon Dioxide (22-30) mmol/L Anion Gap mmol/L BUN (9-20) mg/dL Creatinine (0.66-1.25) mg/dL Est GFR (CKD-EPI)AfAm (>60 ml/min/1.73 sqM) Est GFR (CKD-EPI)NonAf (>60 ml/min/1.73 sqM) Glucose (74-99) mg/dL Calcium (8.4-10.2) mg/dL Magnesium (1.6-2.3) mg/dL Total Bilirubin (0.2-1.3) mg/dL AST (17-59) U/L ALT (4-49) U/L Alkaline Phosphatase (38-126) U/L Troponin I <0.012 (0.000-0.034) ng/mL Total Protein (6.3-8.2) g/dL Albumin (3.5-5.0) g/dL Free T4 (0.78-2.19) ng/dL Free T3 pg/mL (2.8-5.3) pg/ml - Radiology Data Radiology results: image reviewed (Chest x-ray shows COPD and redemonstrated upper lobe scarring.) Disposition Clinical Impression: Atrial fibrillation with RVR Disposition: ADMITTED IP TO THIS HOSP Is patient prescribed a controlled substance at d/c from ED?: No Referrals: Nonstaff,Physician [REFERRING] - 1-2 days Decision Time: 18:25
[2020-10-04 17:17] LABS: Basophils # (A) 0.2 k/uL (0-0.2); Basophils % (A) 2 %; Eosinophils # (A) 0.2 k/uL (0-0.7); Eosinophils % (A) 2 %; HCT 42.5 % (39.0-53.0); HGB 14.1 gm/dL (13.0-17.5); Lymphocytes # (A) 3.1 k/uL (1.0-4.8); Lymphocytes % (A) 34 %; MCH 29.9 pg (25.0-35.0); MCHC 33.3 g/dL (31.0-37.0); Mean Platelet Volume 7.7; Monocytes # (A) 0.7 k/uL (0-1.0); Monocytes % (A) 8 %; Neutrophils # (A) 4.8 k/uL (1.3-7.7); Neutrophils % (A) 53 %; Platelet Count 244 k/uL (150-450); RBC 4.73 m/uL (4.30-5.90); WBC 9.1 k/uL (3.8-10.6)
[2020-10-04] MEDS: DILTIAZEM 125 MG in SODIUM CHLORIDE 0.9% 100 ML IV SCH (17:18)
[2020-10-04 17:26] LABS: MCV 89.7 fL (80.0-100.0)
--- NOTE | 2020-10-04 17:26 | XR ---
EXAMINATION TYPE: XR chest 2V DATE OF EXAM: 10/04/2020 COMPARISON: 07/29/2020 HISTORY: 60-year-old male dysrhythmia, tachycardia TECHNIQUE: PA and lateral views FINDINGS: Heart normal size. Aorta and pulmonary vasculature within normal limits. Continued biapical pleural p arenchymal scarring with some upward hilar retraction. Hyperinflation. Extensive linear edge at the l ateral right apex is unchanged suggesting projectional artifact rather than a trace pneumothorax. No consolidation or pleural effusion otherwise seen. IMPRESSION: COPD and redemonstrated upper lung biapical pleural-parenchymal scarring with associated volume loss and distortion. No acute change seen.
[2020-10-04 17:27] LABS: ALT 19 U/L (4-49); AST 37 U/L (17-59); African American GFR (CKD) >90 (>60 ml/min/1.73 sqM); Albumin 4.2 g/dL (3.5-5.0); Alkaline Phosphatase 79 U/L (38-126); Anion Gap 7 mmol/L; Blood Urea Nitrogen 15 mg/dL (9-20); Calcium 9.2 mg/dL (8.4-10.2); Carbon Dioxide 28 mmol/L (22-30); Chloride 100 mmol/L (98-107); Glucose 98 mg/dL (74-99); Non-African American GFR(CKD) >90 (>60 ml/min/1.73 sqM); Potassium 4.3 mmol/L (3.5-5.1); Sodium 135 mmol/L (137-145); Total Bilirubin 0.6 mg/dL (0.2-1.3); Total Protein 7.9 g/dL (6.3-8.2)
[2020-10-04 17:29] LABS: INR 0.9 (<1.2); Partial Thromboplastin Time 25.9 sec (22.0-30.0); Prothrombin Time 9.7 sec (9.0-12.0)
[2020-10-04 18:10] LABS: T4, Free (Free Thyroxine) 1.48 ng/dL (0.78-2.19)
[2020-10-04] MEDS ORDERED: NALOXONE 0.4 MG/ML 1 ML VIAL IV PRN (18:25)
[2020-10-04] MEDS: APIXABAN 5 MG TAB PO SCH (23:09)
[2020-10-05] MEDS: DILTIAZEM 125 MG in SODIUM CHLORIDE 0.9% 100 ML IV SCH (02:33)
[2020-10-05 03:05] VITALS: RESP 18
[2020-10-05 08:38] VITALS: TEMP 97.7
[2020-10-05] MEDS: APIXABAN 5 MG TAB PO SCH (08:42)
[2020-10-05] MEDS ORDERED: METOPROLOL TARTRATE 25 MG TAB PO SCH (09:00)
[2020-10-05 11:09] VITALS: BMI 14.6
[2020-10-05 11:42] VITALS: BP 114/69; PULSE 76
--- NOTE | 2020-10-05 12:54 | P.CRDCN ---
History of Present Illness Consult date: 10/05/20 History of present illness: CHIEF COMPLAINT: A. fib with RVR HISTORY OF PRESENT ILLNESS: This is a 60-year-old male with a past medical history significant for atrial fibrillation and chronic back and neck pain. Patient follows in the office with Dr. Jerome. We have been asked to see the patient in consultation for A. fib with RVR. Patient was hospitalized in July 2020 and diagnosed with new onset atrial fibrillation. He left AMA at that time. Patient followed up with Dr. Jerome yesterday in the office and was found to be in A. fib with RVR. She was directed to come to the emergency room. He denies chest pain or pressure. Denies shortness of breath. Denies palpations. He has since converted to sinus mechanism. DIAGNOSTICS: EKG reveals atrial fibrillation with RVR Chest xray COPD. No acute changes. Laboratory data: 30 DC 10.1. Hemoglobin 14.1. Platelet count 244. Sodium 135. Potassium 4.3. Current home cardiac medications include Eliquis 5 mg twice a day Echocardiogram completed in July 2020 revealed ejection fraction greater than 55% with no significant valvular issues. REVIEW OF SYSTEMS: At the time of my exam: CONSTITUTIONAL: Denies fever or chills. HEENT: Denies blurred vision, vision changes, or eye pain. Denies hemoptysis CARDIOVASCULAR: Denies chest pain, orthopnea, PND or palpitations RESPIRATORY: No shortness of breath. GASTROINTESTINAL: Denies abdominal pain. Denies nausea or vomiting. HEMATOLOGIC: Denies bleeding disorders. GENITOURINARY: Denies any blood in urine. SKIN: Denies pruitis. Denies rash. PHYSICAL EXAM: VITAL SIGNS: Reviewed. GENERAL: Well-developed in no acute distress. HEENT: Head is normocephalic. Pupils are equal, round. Sclerae anicteric. Mucous membranes of the mouth are moist. Neck supple. No JVD or thyromegaly LUNGS: Respirations even and unlabored. Lungs essentially clear to auscultation bilaterally. HEART: Regular rate and rhythm. S1 and S2 heard. ABDOMEN: Soft. Nondistended. Nontender. EXTREMITIES: Normal range of motion. No clubbing or cyanosis. Peripheral pulses intact. No lower extremity edema NEUROLOGIC: Awake and alert. Oriented x 3. ASSESSMENT: Paroxysmal atrial fibrillation with RVR, currently maintaining sinus mechanism Chronic back and neck pain PLAN: No need to repeat echocardiogram as this was performed in July 2020 Continue Eliquis for anticoagulation Add metoprolol 25 mg twice a day Patient may be discharged home today from a cardiac perspective and follow up outpatient with Dr. Jerome Nurse practitioner note has been reviewed by physician. Signing provider agrees with the documented findings, assessment, and plan of care. Past Medical History Past Medical History: Atrial Fibrillation Additional Past Medical History / Comment(s): chronic back and neck pain History of Any Multi-Drug Resistant Organisms: None Reported Past Surgical History: Orthopedic Surgery Additional Past Surgical History / Comment(s): right hip surgery Past Anesthesia/Blood Transfusion Reactions: No Reported Reaction Past Psychological History: No Psychological Hx Reported Smoking Status: Current every day smoker Past Alcohol Use History: None Reported Past Drug Use History: Marijuana - Past Family History Father Family Medical History: Myocardial Infarction ([place]) Brother(s) Family Medical History: Myocardial Infarction ([place]) Medications and Allergies Home Medications Medication Instructions Recorded Confirmed Type oxyCODONE HCL [OxyIR] 5 mg PO QID 07/29/20 10/04/20 History Apixaban [Eliquis] 5 mg PO BID #60 tab 07/30/20 10/04/20 Rx Allergies Allergy/AdvReac Type Severity Reaction Status Date / Time No Known Allergies Allergy Verified 10/04/20 17:03 Physical Exam Vitals: Vital Signs Temp Pulse Pulse Resp BP BP Pulse Ox 10/05/20 11:41 76 18 114/69 99 10/05/20 08:00 97.7 F 85 18 115/70 99 10/05/20 07:05 122 H 121/71 10/05/20 03:05 98.0 F 68 18 88/50 96 10/05/20 02:00 68 18 10/04/20 23:33 97.7 F 90 17 127/68 98 10/04/20 22:27 98.0 F 95 16 114/95 98 10/04/20 21:57 98.4 F 105 H 16 113/77 97 10/04/20 20:40 99 16 116/84 97 10/04/20 19:15 117 H 129/82 10/04/20 18:44 133 H 18 117/81 98 10/04/20 18:04 142 H 18 99/72 98 10/04/20 16:41 148 H 16 10/04/20 16:25 98.4 F 123 H 18 146/71 99 Intake and Output 10/04/20 10/05/20 10/05/20 22:59 06:59 14:59 Intake Total 7.083 78.333 330.5 Output Total 600 Balance 7.083 -521.667 330.5 Intake: Intake, IV Titration 7.083 78.333 230.5 Amount Diltiazem 125 mg In 7.083 78.333 80.5 Sodium Chloride 0.9% 100 ml @ 7.5 MG/HR 7.5 mls/hr IV .[id number] GABRIELA Rx#: [id number] Sodium Chloride 0.9% 1, 150 000 ml @ 50 mls/hr IV . Q20H STA Rx#:[id number] Oral 100 Output: Urine 600 Other: Voiding Method Urinal Urinal # Voids 0 # Bowel Movements 0 Weight 58.967 kg 43.7 kg 43.7 kg Results 10/04/20 16:41 10/04/20 16:41 Cardiac Enzymes 10/04/20 10/04/20 Range/Units 16:41 16:41 AST 37 (17-59) U/L Troponin I <0.012 (0.000-0.034) ng/mL Coagulation 10/04/20 Range/Units 16:41 PT 9.7 (9.0-12.0) sec APTT 25.9 (22.0-30.0) sec CBC 10/04/20 Range/Units 16:41 WBC 9.1 (3.8-10.6) k/uL RBC 4.73 (4.30-5.90) m/uL Hgb 14.1 (13.0-17.5) gm/dL Hct 42.5 (39.0-53.0) % Plt Count 244 (150-450) k/uL Comprehensive Metabolic Panel 10/04/20 Range/Units 16:41 Sodium 135 L (137-145) mmol/L Potassium 4.3 (3.5-5.1) mmol/L Chloride 100 (98-107) mmol/L Carbon Dioxide 28 (22-30) mmol/L BUN 15 (9-20) mg/dL Creatinine 0.64 L (0.66-1.25) mg/dL Glucose 98 (74-99) mg/dL Calcium 9.2 (8.4-10.2) mg/dL AST 37 (17-59) U/L ALT 19 (4-49) U/L Alkaline Phosphatase 79 (38-126) U/L Total Protein 7.9 (6.3-8.2) g/dL Albumin 4.2 (3.5-5.0) g/dL Current Medications Generic Name Dose Route Start Last Admin Trade Name Freq PRN Reason Stop Dose Admin Apixaban 5 mg 10/04/20 22:45 10/05/20 08:42 Apixaban 5 Mg Tab PO 5 mg BID GABRIELA Administration Diltiazem HCl 125 mg/ Sodium 125 mls @ 7.5 mls/hr 10/04/20 17:00 10/05/20 10:36 Chloride IV 0 mg/hr .[id number] GABRIELA 0 mls/hr Infusion 7.5 MG/HR Metoprolol Tartrate 25 mg 10/05/20 09:00 10/05/20 09:27 Metoprolol Tartrate 25 Mg Tab PO 25 mg BID GABRIELA Administration Naloxone HCl 0.2 mg 10/04/20 18:25 Naloxone 0.4 Mg/Ml 1 Ml Vial IV Q2M PRN Opioid Reversal Oxycodone HCl 5 mg 10/04/20 22:45 10/05/20 12:37 Oxycodone Hcl 5 Mg Tab PO 5 mg QID GABRIELA Administration Intake and Output 10/04/20 10/05/20 10/05/20 22:59 06:59 14:59 Intake Total 7.083 78.333 330.5 Output Total 600 Balance 7.083 -521.667 330.5 Intake: Intake, IV Titration 7.083 78.333 230.5 Amount Diltiazem 125 mg In 7.083 78.333 80.5 Sodium Chloride 0.9% 100 ml @ 7.5 MG/HR 7.5 mls/hr IV .[id number] GABRIELA Rx#: [id number] Sodium Chloride 0.9% 1, 150 000 ml @ 50 mls/hr IV . Q20H STA Rx#:[id number] Oral 100 Output: Urine 600 Other: Voiding Method Urinal Urinal # Voids 0 # Bowel Movements 0 Weight 58.967 kg 43.7 kg 43.7 kg Patient Weight 10/06/20 06:59 Weight 43.7 kg 10/04/20 16:41 10/04/20 16:41
--- NOTE | 2020-10-25 22:42 | P.HPIM ---
History of Present Illness H&P Date: 10/05/20 Chief Complaint: Palpitations Patient is a 60-year-old male with a past medical history of atrial fibrillation, chronic back pain and neck pain and currently everyday smoker and marijuana use presents to ER with complaints of palpitations. 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 Patient was diagnosed with atrial fibrillation in July 2020. Currently on anticoagulation with Eliquis. Patient is not beta-blockers. Denies any cough or sputum production. No fever no chills. No chest pain. Patient is currently to sinus rhythm. Chest x-ray showed no acute cardiopulmonary process. COPD and 3 demonstrated upper lung by apical pleural parenchymal scarring with associated volume loss and distortion. EKG showed atrial fibrillation with rapid ventricle rate. TSH level is 2.0 and free T4 1.48 Sodium 135 potassium 4.3, BUN 15 and creatinine 0.64, WBC 9.1 and hemoglobin 14.1 Review of Systems Constitutional: Patient denies any fever or chills . No generalized weakness or weight loss. Abdomen: Patient denied nausea vomiting and diarrhea and abdominal pain. Cardiovascular: Patient denies any chest pain or short of breath no palpitations. Respiratory: patient denied any cough or sputum production. No shortness of breath Neurologic: Patient denied any numbness or tingling headache. Musculoskeletal: Patient denies any complaints of joint swelling or deformity. Skin: Negative Psychiatric: Negative Endocrine: No heat or cold intolerance. No recent weight gain. Genitourinary: No dysuria or hematuria. All other 14 point ROS negative except the above Past Medical History Past Medical History: Atrial Fibrillation Additional Past Medical History / Comment(s): chronic back and neck pain History of Any Multi-Drug Resistant Organisms: None Reported Past Surgical History: Orthopedic Surgery Additional Past Surgical History / Comment(s): right hip surgery Past Anesthesia/Blood Transfusion Reactions: No Reported Reaction Past Psychological History: No Psychological Hx Reported Smoking Status: Current every day smoker Past Alcohol Use History: None Reported Past Drug Use History: Marijuana - Past Family History Father Family Medical History: Myocardial Infarction ([place]) Brother(s) Family Medical History: Myocardial Infarction ([place]) Medications and Allergies Home Medications Medication Instructions Recorded Confirmed Type oxyCODONE HCL [OxyIR] 5 mg PO QID 07/29/20 10/04/20 History Apixaban [Eliquis] 5 mg PO BID #60 tab 07/30/20 10/04/20 Rx Metoprolol Tartrate [Lopressor] 25 mg PO BID #60 tab 10/05/20 Rx Allergies Allergy/AdvReac Type Severity Reaction Status Date / Time No Known Allergies Allergy Verified 10/04/20 17:03 Physical Exam Vitals: Vital Signs Temp Pulse Pulse Resp BP BP Pulse Ox 10/05/20 11:41 76 18 114/69 99 10/05/20 08:00 97.7 F 85 18 115/70 99 10/05/20 07:05 122 H 121/71 10/05/20 03:05 98.0 F 68 18 88/50 96 10/05/20 02:00 68 18 10/04/20 23:33 97.7 F 90 17 127/68 98 10/04/20 22:27 98.0 F 95 16 114/95 98 10/04/20 21:57 98.4 F 105 H 16 113/77 97 10/04/20 20:40 99 16 116/84 97 10/04/20 19:15 117 H 129/82 10/04/20 18:44 133 H 18 117/81 98 10/04/20 18:04 142 H 18 99/72 98 10/04/20 16:41 148 H 16 10/04/20 16:25 98.4 F 123 H 18 146/71 99 Intake and Output 10/04/20 10/05/20 10/05/20 22:59 06:59 14:59 Intake Total 7.083 78.333 230.5 Output Total 600 Balance 7.083 -521.667 230.5 Intake: Intake, IV Titration 7.083 78.333 230.5 Amount Diltiazem 125 mg In 7.083 78.333 80.5 Sodium Chloride 0.9% 100 ml @ 7.5 MG/HR 7.5 mls/hr IV .[id number] GABRIELA Rx#: [id number] Sodium Chloride 0.9% 1, 150 000 ml @ 50 mls/hr IV . Q20H STA Rx#:[id number] Output: Urine 600 Other: Voiding Method Urinal Urinal Weight 58.967 kg 43.7 kg 43.7 kg PHYSICAL EXAMINATION: Patient is lying in the bed comfortably, no acute distress, awake alert and oriented.. HEENT: Normocephalic. Neck is supple. Pupils reactive. Nostrils clear. Oral cavity is moist. Ears reveal no drainage. Neck reveals no JVD, carotid bruits, or thyromegaly. CHEST EXAMINATION: Trachea is central. Symmetrical expansion. Lung arellano clear to auscultation and percussion. CARDIAC: Normal S1, S2 with no gallops. No murmurs ABDOMEN: Soft. Bowel sounds normal. No organomegaly. No abdominal bruits. Extremities: reveal no edema. No clubbing or cyanosis Neurologically awake, alert, oriented x3 with well-coordinated movements. No focal deficits noted Skin: No rash or skin lesions. Psychiatric: Coperative. Nonsuicidal Musculoskeletal: No joint swelling or deformity. Normal range of motion. This patient was cared for during of federal and state declared state of emergency secondary to COVID 19 Results CBC & Chem 7: 10/04/20 16:41 10/04/20 16:41 Labs: Abnormal Lab Results - Last 24 Hours (Table) 10/04/20 Range/Units 16:41 Sodium 135 L (137-145) mmol/L Creatinine 0.64 L (0.66-1.25) mg/dL Free T3 pg/mL 5.6 H (2.8-5.3) pg/ml Thrombosis Risk Factor Assmnt - DVT/VTE Prophylaxis DVT/VTE Prophylaxis: Pharmacologic Prophylaxis ordered - Choose All That Apply Each Factor Represents 1 point: Abnormal pulmonary function (COPD), Age 41-60 ye ars Other Risk Factors: No Thrombosis Risk Factor Assessment Total Risk Factor Score: 2 Thrombosis Risk Factor Assessment Level: Low Risk Assessment and Plan Assessment: Atrial fibrillation with rapid ventricular rate. Chronic back pain and neck pain Currently everyday smoker and marijuana use Plan: Patient will be continued telemetry monitoring. Currently converted to sinus [facility]. Added metoprolol 25 mg twice daily and recent echocardiogram in July 2020 showed normal ejection fraction. Patient will be continued Eliquis as per his home regimen. Patient was seen by cardiology. Time with Patient: Greater than 30
--- NOTE | 2020-10-25 22:44 | P.DS ---
Providers Date of admission: 10/04/20 18:26 Expected date of discharge: 10/05/20 Attending physician: Marcos Stewart Consults: 10/04/20 18:26 Consult Physician Urgent Consulting Provider: Yulisa Mason Consult Reason/Comments: a fib w rvr Do you want consulting provider notified?: Yes Primary care physician: Matthieu Araujo Hospital Course: Discharge diagnosis Atrial fibrillation with rapid ventricular rate. Chronic back pain and neck pain Currently everyday smoker and marijuana use Hospital course Patient is a 60-year-old male with a past medical history of atrial fibril lation, chronic back pain and neck pain and currently everyday smoker and marijuana use presents to ER with complaints of palpitations. 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 Patient was diagnosed with atrial fibrillation in July 2020. Currently on anticoagulation with Eliquis. Patient is not beta-blockers. Denies any cough or sputum production. No fever no chills. No chest pain. Patient is currently to sinus rhythm. Chest x-ray showed no acute cardiopulmonary process. COPD and 3 demonstrated upper lung by apical pleural parenchymal scarring with associated volume loss and distortion. EKG showed atrial fibrillation with rapid ventricle rate. TSH level is 2.0 and free T4 1.48 Sodium 135 potassium 4.3, BUN 15 and creatinine 0.64, WBC 9.1 and hemoglobin 14.1 Patient was continued telemetry monitoring. Currently converted to sinus rhythm. Added metoprolol 25 mg twice daily and recent echocardiogram in July 2020 showed normal ejection fraction. Patient will be continued Eliquis as per his home regimen. Patient was seen by cardiology. Discharge physical examination was done and vitals reviewed. Patient Condition at Discharge: Stable Plan - Discharge Summary New Discharge Prescriptions: New Metoprolol Tartrate [Lopressor] 25 mg PO BID #60 tab Continue oxyCODONE HCL [OxyIR] 5 mg PO QID Apixaban [Eliquis] 5 mg PO BID #60 tab Discharge Medication List oxyCODONE HCL [OxyIR] 5 mg PO QID 07/29/20 [History] Apixaban [Eliquis] 5 mg PO BID #60 tab 07/30/20 [Rx] Metoprolol Tartrate [Lopressor] 25 mg PO BID #60 tab 10/05/20 [Rx] Follow up Appointment(s)/Referral(s): Nonstaff,Physician [REFERRING] - 1-2 days Dominguez Jerome MD [Family Provider] - 10/14/20 3:45 pm () Patient Instructions/Handouts: A-fib (Atrial Fibrillation) (DC) Discharge Disposition: HOME SELF-CARE
== END 2020-10-05 15:55 | disposition home or self-care (01) ==
LOC: EC 16:17 → 3SCARD 18:26
PROVIDERS: ADMIT Hospitalist; ATTEND Hospitalist
DX: I48.0 Paroxysmal atrial fibrillation (principal); J44.9 Chronic obstructive pulmonary disease, unspecified; G89.29 Other chronic pain; M54.2 Cervicalgia; M54.9 Dorsalgia, unspecified; F12.90 Cannabis use, unspecified, uncomplicated; J98.4 Other disorders of lung; F17.200 Nicotine dependence, unspecified, uncomplicated; Z79.01 Long term (current) use of anticoagulants; Z79.891 Long term (current) use of opiate analgesic; Z98.890 Other specified postprocedural states; Z82.49 Family history of ischemic heart disease and other diseases of the circulatory system
CPT/HCPCS: 96366 ×3; 93005 ×2; 96365; 99285; 36415; 84439; 84481; 80053; 83735; 84443; 84484; 85025; 85610; 85730; 71046; G0378 ×2

== ENCOUNTER 2021-08-27 12:21 | Inpatient (IN) | payer MEDICARE ==
--- NOTE | 2021-08-27 12:48 | ED ---
General Adult HPI - General Chief complaint: Shortness of Breath Stated complaint: Chest Pain Time Seen by Provider: 08/27/21 12:28 Source: patient, RN notes reviewed, old records reviewed Mode of arrival: EMS - History of Present Illness Initial comments: 60-year-old male presenting with an episode of chest pain. This is left-sided, sharp in nature. The episode lasted approximately one hour. He was transported by EMS. Found to have stable vitals. No current chest pain at the time my evaluation. No dyspnea. No fever. Patient denies cough. He denies nausea vomiting. Denies diaphoresis. He has no previous history of CAD. He is a current smoker. - Related Data Home Medications Medication Instructions Recorded Confirmed oxyCODONE HCL [OxyIR] 5 mg PO QID 07/29/20 10/04/20 Previous Rx's Medication Instructions Recorded Apixaban [Eliquis] 5 mg PO BID #60 tab 07/30/20 Metoprolol Tartrate [Lopressor] 25 mg PO BID #60 tab 10/05/20 Allergies Allergy/AdvReac Type Severity Reaction Status Date / Time No Known Allergies Allergy Verified 08/27/21 12:31 Review of Systems ROS Statement: Those systems with pertinent positive or pertinent negative responses have been documented in the HPI. ROS Other: All systems not noted in ROS Statement are negative. Past Medical History Past Medical History: Atrial Fibrillation Additional Past Medical History / Comment(s): chronic back and neck pain History of Any Multi-Drug Resistant Organisms: None Reported Past Surgical History: Orthopedic Surgery Additional Past Surgical History / Comment(s): right hip surgery Past Anesthesia/Blood Transfusion Reactions: No Reported Reaction Past Psychological History: No Psychological Hx Reported Smoking Status: Current every day smoker Past Alcohol Use History: None Reported Past Drug Use History: Marijuana - Past Family History Father Family Medical History: Myocardial Infarction ([place]) Brother(s) Family Medical History: Myocardial Infarction ([place]) General Exam General appearance: alert, in no apparent distress Head exam: Present: atraumatic, normocephalic Eye exam: Present: normal appearance ENT exam: Present: normal exam Neck exam: Present: normal inspection. Absent: tenderness, meningismus Respiratory exam: Present: normal lung sounds bilaterally. Absent: respiratory distress, wheezes Cardiovascular Exam: Present: regular rate, normal rhythm GI/Abdominal exam: Present: soft. Absent: distended, tenderness, guarding Extremities exam: Present: normal inspection, normal capillary refill. Absent: pedal edema Neurological exam: Present: alert, oriented X3, CN II-XII intact. Absent: motor sensory deficit Psychiatric exam: Present: normal affect, normal mood Skin exam: Present: warm, dry, intact. Absent: cyanosis, diaphoretic Course Vital Signs 08/27/21 08/27/21 12:29 15:05 Temperature 98.0 F 97.2 F L Pulse Rate 52 L 53 L Respiratory 16 18 Rate Blood Pressure 119/84 119/72 O2 Sat by Pulse 98 99 Oximetry EKG Findings - EKG Comments: EKG Findings:: EKG: Sinus bradycardia, rate 52, WI interval 160, QRS duration 100, QTC 414, T waves are prominent throughout but upright. There is no ST segment elevation. Medical Decision Making - Medical Decision Making 60-year-old male who presented with an episode of chest pain and mild dyspnea. Symptoms mostly resolved at the time of initial presentation. Patient's vital signs are stable. Workup is initiated he has a normal CBC, normal CMP, negative initial troponin. His d-dimer was mildly elevated and CT angiography was performed which was positive for pulmonary embolism. He was started on high- dose heparin. He will be admitted to Dr. Witt who is aware. - Lab Data Result diagrams: 08/27/21 12:32 08/27/21 12:32 Lab Results 08/27/21 08/27/21 08/27/21 Range/Units 12:32 12:32 12:32 WBC 4.8 (3.8-10.6) k/uL RBC 4.42 (4.30-5.90) m/uL Hgb 13.4 (13.0-17.5) gm/dL Hct 40.3 (39.0-53.0) % MCV 91.2 (80.0-100.0) fL MCH 30.3 (25.0-35.0) pg MCHC 33.2 (31.0-37.0) g/dL RDW 13.9 (11.5-15.5) % Plt Count 234 (150-450) k/uL MPV 7.6 Neutrophils % 54 % Lymphocytes % 35 % Monocytes % 6 % Eosinophils % 2 % Basophils % 1 % Neutrophils # 2.6 (1.3-7.7) k/uL Lymphocytes # 1.7 (1.0-4.8) k/uL Monocytes # 0.3 (0-1.0) k/uL Eosinophils # 0.1 (0-0.7) k/uL Basophils # 0.0 (0-0.2) k/uL PT 10.1 (9.0-12.0) sec INR 0.9 (<1.2) APTT 24.0 (22.0-30.0) sec D-Dimer 0.61 H (<0.60) mg/L FEU Sodium 135 L (137-145) mmol/L Potassium 4.5 (3.5-5.1) mmol/L Chloride 101 (98-107) mmol/L Carbon Dioxide 28 (22-30) mmol/L Anion Gap 6 mmol/L BUN 7 L (9-20) mg/dL Creatinine 0.76 (0.66-1.25) mg/dL Est GFR (CKD-EPI)AfAm >90 (>60 ml/min/1.73 sqM) Est GFR (CKD-EPI)NonAf >90 (>60 ml/min/1.73 sqM) Glucose 107 H (74-99) mg/dL Calcium 8.8 (8.4-10.2) mg/dL Magnesium 1.9 (1.6-2.3) mg/dL Total Bilirubin 0.7 (0.2-1.3) mg/dL AST 34 (17-59) U/L ALT 17 (4-49) U/L Alkaline Phosphatase 65 (38-126) U/L Troponin I (0.000-0.034) ng/mL Total Protein 7.3 (6.3-8.2) g/dL Albumin 3.9 (3.5-5.0) g/dL Lipase 63 (23-300) U/L 08/27/21 Range/Units 12:32 WBC (3.8-10.6) k/uL RBC (4.30-5.90) m/uL Hgb (13.0-17.5) gm/dL Hct (39.0-53.0) % MCV (80.0-100.0) fL MCH (25.0-35.0) pg MCHC (31.0-37.0) g/dL RDW (11.5-15.5) % Plt Count (150-450) k/uL MPV Neutrophils % % Lymphocytes % % Monocytes % % Eosinophils % % Basophils % % Neutrophils # (1.3-7.7) k/uL Lymphocytes # (1.0-4.8) k/uL Monocytes # (0-1.0) k/uL Eosinophils # (0-0.7) k/uL Basophils # (0-0.2) k/uL PT (9.0-12.0) sec INR (<1.2) APTT (22.0-30.0) sec D-Dimer (<0.60) mg/L FEU Sodium (137-145) mmol/L Potassium (3.5-5.1) mmol/L Chloride (98-107) mmol/L Carbon Dioxide (22-30) mmol/L Anion Gap mmol/L BUN (9-20) mg/dL Creatinine (0.66-1.25) mg/dL Est GFR (CKD-EPI)AfAm (>60 ml/min/1.73 sqM) Est GFR (CKD-EPI)NonAf (>60 ml/min/1.73 sqM) Glucose (74-99) mg/dL Calcium (8.4-10.2) mg/dL Magnesium (1.6-2.3) mg/dL Total Bilirubin (0.2-1.3) mg/dL AST (17-59) U/L ALT (4-49) U/L Alkaline Phosphatase (38-126) U/L Troponin I <0.012 (0.000-0.034) ng/mL Total Protein (6.3-8.2) g/dL Albumin (3.5-5.0) g/dL Lipase (23-300) U/L Critical Care Time Critical Care Time: Yes Total Critical Care Time: 35 Disposition Clinical Impression: Pulmonary embolism Disposition: ADMITTED IP TO THIS [facility] Condition: Stable Is patient prescribed a controlled substance at d/c from ED?: No Referrals: None,Stated [Primary Care Provider] - 1-2 days Decision to Admit Reason: Admit from EC Decision Date: 08/27/21 Decision Time: 15:54
[2021-08-27 12:55] LABS: Basophils % (A) 1 %; Eosinophils # (A) 0.1 k/uL (0-0.7); Eosinophils % (A) 2 %; HCT 40.3 % (39.0-53.0); HGB 13.4 gm/dL (13.0-17.5); Lymphocytes # (A) 1.7 k/uL (1.0-4.8); Lymphocytes % (A) 35 %; MCH 30.3 pg (25.0-35.0); MCHC 33.2 g/dL (31.0-37.0); MCV 91.2 fL (80.0-100.0); Mean Platelet Volume 7.6; Monocytes # (A) 0.3 k/uL (0-1.0); Monocytes % (A) 6 %; Neutrophils # (A) 2.6 k/uL (1.3-7.7); Neutrophils % (A) 54 %; Platelet Count 234 k/uL (150-450); RBC 4.42 m/uL (4.30-5.90); RDW 13.9 % (11.5-15.5); WBC 4.8 k/uL (3.8-10.6)
[2021-08-27 13:11] LABS: ALT 17 U/L (4-49); AST 34 U/L (17-59); African American GFR (CKD) >90 (>60 ml/min/1.73 sqM); Albumin 3.9 g/dL (3.5-5.0); Alkaline Phosphatase 65 U/L (38-126); Anion Gap 6 mmol/L; Blood Urea Nitrogen 7 mg/dL (9-20); Calcium 8.8 mg/dL (8.4-10.2); Carbon Dioxide 28 mmol/L (22-30); Chloride 101 mmol/L (98-107); Glucose 107 mg/dL (74-99); Lipase 63 U/L (23-300); Magnesium 1.9 mg/dL (1.6-2.3); Non-African American GFR(CKD) >90 (>60 ml/min/1.73 sqM); Potassium 4.5 mmol/L (3.5-5.1); Sodium 135 mmol/L (137-145); Total Bilirubin 0.7 mg/dL (0.2-1.3); Total Protein 7.3 g/dL (6.3-8.2)
[2021-08-27 13:32] LABS: INR 0.9 (<1.2); Prothrombin Time 10.1 sec (9.0-12.0)
--- NOTE | 2021-08-27 14:26 | XR ---
EXAMINATION TYPE: XR chest 2V DATE OF EXAM: 08/27/2021 COMPARISON: Multiple radiographs, with the most recent on 10/04/2020. HISTORY: Chest Pain; TECHNIQUE: Frontal and lateral views of the chest are obtained. FINDINGS: Lungs/Pleura: There is flattening of the diaphragm with increased lucency of the lungs. No evidence o f pneumothorax, pleural effusion or focal consolidation. Unchanged apical densities bilaterally. Pulmonary vascularity: Unremarkable. Heart/mediastinum: Cardiomediastinal silhouette is unremarkable. Musculoskeletal: No acute osseous pathology. IMPRESSION: 1. No acute cardiopulmonary disease/process. 2. COPD changes.
--- NOTE | 2021-08-27 14:44 | CT ---
EXAMINATION TYPE: CT angio chest DATE OF EXAM: 08/27/2021 2:29 PM COMPARISON: Chest radiograph 08/27/2021. HISTORY: SOB, Chest pain, Positive D-dimer CT DLP: 130 mGycm Automated exposure control for dose reduction was used. CONTRAST: CTA scan of the thorax is performed without and with IV Contrast, patient injected with 100 ml mL of Isovue 370, pulmonary embolism protocol. . FINDINGS: LUNGS: Centrilobular and paraseptal emphysematous are most pronounced in the lung apices with areas o f consolidation in the lung apices well. No evidence for pleural effusion or pneumothorax. There is t hickening of these degenerative fissure on the left . MEDIASTINUM: There is satisfactory enhancement of the pulmonary artery and its branches. Filling defe ct within the right upper lobe pulmonary vasculature is identified in the segmental and subsegmental branches. No evidence of right heart strain. There are no greater than 1 cm hilar or mediastinal lymp h nodes. No pericardial effusion is seen. OTHER: No additional significant abnormality is seen. Diffuse osseous demineralization. IMPRESSION: 1. RIGHT UPPER LOBE SEGMENTAL AND SUBSEGMENTAL PULMONARY EMBOLUS. NO EVIDENCE OF RIGHT HEART STRAIN. 2. Bilateral upper lobe airspace consolidation superimposed on moderate emphysematous changes. 3. Thickening of the superior aspect of the left major fissure which may represent loculated fluid. A ttention on follow-up imaging.
[2021-08-27] MEDS ORDERED: HEPARIN SODIUM 1,000 UN/ML (10ML VL) IV ONE ×2 (15:33→15:48)
[2021-08-27] MEDS ORDERED: HEPARIN SODIUM 1,000 UN/ML (10ML VL) IV PRN ×2 (15:33→15:48)
[2021-08-27] MEDS ORDERED: HEPARIN SOD,PORK IN 0.45% NACL 25,000 UNIT in 0.45% NACL 1 250ML.BAG IV SCH ×2 (15:45→16:00)
[2021-08-27] MEDS ORDERED: HYDROmorphone 0.5 MG/0.5 ML SYRINGE IVP PRN (15:47)
[2021-08-27] MEDS ORDERED: NALOXONE 0.4 MG/ML 1 ML VIAL IV PRN (15:47)
[2021-08-27] MEDS ORDERED: ACETAMINOPHEN TAB 325 MG TAB PO PRN (15:47)
[2021-08-27] MEDS: SODIUM CHLORIDE 0.9% 1,000 ML IV SCH (16:18)
--- NOTE | 2021-08-27 22:08 | P.HPIM ---
History of Present Illness H&P Date: 08/27/21 Chief Complaint: Chest Pain Patient is a 60-year-old male with a known history of paroxysmal atrial fibrillation currently not on anticoagulation, ongoing nicotine addiction with 1 pack/day came to ER with complaints of sharp left retrosternal chest pain and across his chest lasting for about an hour..Patient did have chest pains last few days lasting about 5 seconds. Patient otherwise denied any associated shortness of breath. No nausea vomiting or diaphoresis. No headache or dizziness or lightheadedness. Patient was brought to ER by EMS. Denied any complaints of chest pain at this time. Patient denied any fever or chills. No cough or sputum production. Patient states that he is fully vaccinated against COVID-19 virus.. Chest x-ray showed no acute cardiopulmonary disease. COPD changes. Laboratory showed D-dimer level 0.[address] angiogram was done which showed right upper lobe segmental and subsegmental pulmonary embolus. No evidence of right heart strain. Bilateral upper lobe airspace consolidation superimposed on moderate emphysematous changes. Thickening of the superior aspect of the left major fissure which may represent loculated fluid. EKG showed sinus bradycardia. Other laboratory data reviewed. WBC 4.8 hemoglobin 13.4 and platelets 234 Sodium 135 potassium 4.5 BUN 7 and creatinine 0.76 Review of Systems Constitutional: Patient denies any fever or chills . No generalized weakness or weight loss. Abdomen: Patient denied nausea vomiting and diarrhea and abdominal pain. Cardiovascular: Patient denies any chest pain or short of breath no palpitations. Respiratory: patient denied any cough or sputum production. No shortness of breath Neurologic: Patient denied any numbness or tingling headache. Musculoskeletal: Patient denies any complaints of joint swelling or deformity. Skin: Negative Psychiatric: Negative Endocrine: No heat or cold intolerance. No recent weight gain. Genitourinary: No dysuria or hematuria. All other 14 point ROS negative except the above Past Medical History Past Medical History: Atrial Fibrillation Additional Past Medical History / Comment(s): chronic back and neck pain History of Any Multi-Drug Resistant Organisms: None Reported Past Surgical History: Orthopedic Surgery Additional Past Surgical History / Comment(s): right hip surgery Past Anesthesia/Blood Transfusion Reactions: No Reported Reaction Past Psychological History: No Psychological Hx Reported Smoking Status: Current every day smoker Past Alcohol Use History: None Reported Past Drug Use History: Marijuana - Past Family History Father Family Medical History: Myocardial Infarction ([place]) Brother(s) Family Medical History: Myocardial Infarction ([place]) Medications and Allergies Home Medications Medication Instructions Recorded Confirmed Type oxyCODONE HCL [OxyIR] 5 mg PO QID 07/29/20 08/27/21 History Metoprolol Tartrate [Lopressor] 25 mg PO BID #60 tab 10/05/20 08/27/21 Rx Allergies Allergy/AdvReac Type Severity Reaction Status Date / Time No Known Allergies Allergy Verified 08/27/21 16:03 Physical Exam Vitals: Vital Signs Temp Pulse Resp BP Pulse Ox 08/27/21 18:19 52 L 18 126/80 98 08/27/21 15:05 97.2 F L 53 L 18 119/72 99 08/27/21 12:29 98.0 F 52 L 16 119/84 98 Intake and Output 08/27/21 08/27/21 08/27/21 06:59 14:59 22:59 Other: Weight 45.359 kg PHYSICAL EXAMINATION: Patient is lying in the bed comfortably, no acute distress, awake alert and oriented.. Patient is cachectic HEENT: Normocephalic. Neck is supple. Pupils reactive. Nostrils clear. Oral cavity is moist. Neck reveals no JVD, carotid bruits, or thyromegaly. CHEST EXAMINATION: Trachea is central. Symmetrical expansion. Bilateral diminish ed air entry. Prolonged expiration. No wheezing or rhonchi.. CARDIAC: Normal S1, S2 with no gallops. No murmurs ABDOMEN: Soft. Bowel sounds normal. No organomegaly. No abdominal bruits. Extremities: reveal no edema. No clubbing or cyanosis Neurologically awake, alert, oriented x3 with well-coordinated movements. No focal deficits noted Skin: No rash or skin lesions. Psychiatric: Cooperative. Nonsuicidal Musculoskeletal: No joint swelling or deformity. Normal range of motion. Results CBC & Chem 7: 08/27/21 12:32 08/27/21 12:32 Labs: Abnormal Lab Results - Last 24 Hours (Table) 08/27/21 08/27/21 Range/Units 12:32 12:32 D-Dimer 0.61 H (<0.60) mg/L FEU Sodium 135 L (137-145) mmol/L BUN 7 L (9-20) mg/dL Glucose 107 H (74-99) mg/dL Thrombosis Risk Factor Assmnt - DVT/VTE Prophylaxis DVT/VTE Prophylaxis: Pharmacologic Prophylaxis ordered Assessment and Plan Assessment: Acute pulmonary embolism involving the right upper lobe segmental and subsegmental pulmonary artery. Paroxysmal atrial fibrillation currently not on any anticoagulation. Ongoing nicotine addiction Moderate to severe protein calorie malnutrition. Patient is cachectic. DVT prophylaxis. Plan: Patient will be current heparin drip and continue with telemetry monitoring. Start back on metoprolol. Bilateral lower extremity duplex scan and 2D echocardiogram was ordered to rule out right ventricular strain. Due to emphysematous changes and bilateral upper lobe opacity on the CTA, pulmonary will be consulted for evaluation. Continue to follow closely. Smoking cessation has been counseled extensively. Time with Patient: Greater than 30
[2021-08-27] MEDS: METOPROLOL TARTRATE 25 MG TAB PO SCH (22:49)
[2021-08-28] MEDS: SODIUM CHLORIDE 0.9% 1,000 ML IV SCH (03:29)
--- NOTE | 2021-08-28 08:22 | US ---
EXAMINATION TYPE: US venous doppler duplex LE DATE OF EXAM: 08/28/2021 8:02 AM COMPARISON: NONE CLINICAL HISTORY: Acute PE SIDE PERFORMED: Bilateral TECHNIQUE: The lower extremity deep venous system is examined utilizing real time linear array sonog antione with graded compression, doppler sonography and color-flow sonography. VESSELS IMAGED: Common Femoral Vein Deep Femoral Vein Greater Saphenous Vein * Femoral Vein Popliteal Vein Small Saphenous Vein * Proximal Calf Veins (* superficial vessels) Right Leg: Negative for DVT Left Leg: Negative for DVT IMPRESSION: Grayscale, color doppler, spectral doppler imaging performed of the deep veins of the lo wer extremities. There is normal flow, compressibility, vascular waveforms. No lower extremity DVT.
[2021-08-28 09:07] LABS: Basophils % (A) 1 %; Eosinophils # (A) 0.1 k/uL (0-0.7); Eosinophils % (A) 1 %; HCT 39.2 % (39.0-53.0); Lymphocytes # (A) 1.5 k/uL (1.0-4.8); Lymphocytes % (A) 28 %; MCH 30.8 pg (25.0-35.0); MCHC 33.1 g/dL (31.0-37.0); Mean Platelet Volume 7.6; Monocytes # (A) 0.2 k/uL (0-1.0); Monocytes % (A) 4 %; Neutrophils # (A) 3.6 k/uL (1.3-7.7); Neutrophils % (A) 66 %; Platelet Count 216 k/uL (150-450); RBC 4.22 m/uL (4.30-5.90); RDW 13.9 % (11.5-15.5); WBC 5.6 k/uL (3.8-10.6)
[2021-08-28 09:14] VITALS: RESP 18
[2021-08-28] MEDS: METOPROLOL TARTRATE 25 MG TAB PO SCH (11:40)
[2021-08-28] MEDS ORDERED: RIVAROXABAN 15 MG TAB PO SCH ×2 (11:45→19:00)
[2021-08-28] MEDS ORDERED: RIVAROXABAN 15 MG TAB PO ONE (12:00)
[2021-08-28 12:35] VITALS: BP 122/56; PULSE 62; TEMP 97.8
--- NOTE | 2021-08-28 14:36 | P.CNPUL ---
History of Present Illness Consult date: 08/28/21 Reason for consult: pulmonary embolism History of present illness: 60-year-old male patient, a chronic smoker both tobacco and marijuana was smokes one pack of cigarettes a day sometimes 2 and he smokes a joint every day. The patient has COPD. He has not seen any surgical garment inspector in the past. Does not utilize any form of respiratory medications or inhalers. He has chronic exertional dyspnea. He presented with some retrosternal chest pain that lasted an hour and apparently his been having pain for the past few days lasting few seconds. No pleurisy. No swelling lower extremities. No fever. No chills. No significant sputum production. The patient states that his vaccinated for COVID 19. He came into the emergency pH 6 and was negative for acute abnormalities and was consistent with COPD. He is COVID 19 testing was negative. White cell count was at 4.8 with a hemoglobin of 13.4. Underwent a CT angiogram that showed a very questionable right upper lobe segmental and subsegmental pulmonary embolism. No evidence of any right heart strain. Meanwhile, the CAT scan showed extensive emphysematous changes and the patient had bullous emphysema along with some chronic abdominal masses consistent with COPD. EKG at time of admission was consistent with sinus bradycardia. Meanwhile, the patient had Doppler of the lower extremity was negative. He was started on IV heparin. Per history, there is also history of atrial fibr illation, likely paroxysmal and the patient's cardiac rhythm is sinus. He has not been taking any form of anticoagulation on outpatient basis. Currently is on room air oxygen. He denied having any complaints. Review of Systems Constitutional: Denies chills, Denies fever Eyes: denies as per HPI, denies blurred vision, denies bulging eye, denies decreased vision, denies diplopia, denies discharge, denies dry eye, denies irritation, denies itching, denies pain, denies photophobia, denies loss of peripheral vision, denies loss of vision, denies tunnel vision/blind spots Ears: deny: decreased hearing, ear discharge, earache, tinnitus Ears, nose, mouth and throat: Reports as per HPI Breasts: absent: as per HPI, gynecomastia Cardiovascular: Reports chest pain, Reports dyspnea on exertion Respiratory: Reports cough, Reports dyspnea Gastrointestinal: Reports as per HPI Genitourinary: Reports as per HPI Musculoskeletal: Reports as per HPI Musculoskeletal: absent: ankle pain, ankle stiffness, ankle swelling, as per HPI, elbow pain, elbow stiffness, elbow swelling, foot pain, foot stiffness, foot swelling, hand pain, hand stiffness, hand swelling, hip pain, hip stiffness, hip swelling, knee pain, knee stiffness, knee swelling, shoulder pain, shoulder stiffness, shoulder swelling, wrist pain, wrist stiffness, wrist swelling Integumentary: Reports as per HPI Neurological: Reports as per HPI Psychiatric: Reports as per HPI Endocrine: Reports as per HPI Hematologic/Lymphatic: Reports as per HPI Allergic/Immunologic: Reports as per HPI Past Medical History Past Medical History: Atrial Fibrillation Additional Past Medical History / Comment(s): chronic back and neck pain History of Any Multi-Drug Resistant Organisms: None Reported Past Surgical History: Orthopedic Surgery Additional Past Surgical History / Comment(s): right hip surgery Past Anesthesia/Blood Transfusion Reactions: No Reported Reaction Past Psychological History: No Psychological Hx Reported Smoking Status: Current every day smoker Past Alcohol Use History: None Reported Past Drug Use History: Marijuana - Past Family History Father Family Medical History: Myocardial Infarction ([place]) Brother(s) Family Medical History: Myocardial Infarction ([place]) Medications and Allergies Home Medications Medication Instructions Recorded Confirmed Type oxyCODONE HCL [OxyIR] 5 mg PO QID 07/29/20 08/27/21 History Metoprolol Tartrate [Lopressor] 25 mg PO BID #60 tab 10/05/20 08/27/21 Rx Rivaroxaban [Xarelto Starter Pack] 0 mg PO DIRECTED 30 Days #1 08/28/21 Rx packet Allergies Allergy/AdvReac Type Severity Reaction Status Date / Time No Known Allergies Allergy Verified 08/27/21 16:03 Physical Exam Vitals: Vital Signs Temp Pulse Pulse Resp BP BP Pulse Ox 08/28/21 12:00 97.8 F 62 18 122/56 95 08/28/21 08:00 97.9 F 54 L 18 119/53 95 08/28/21 03:00 58 L 16 130/67 95 08/27/21 22:41 56 L 15 114/67 99 08/27/21 20:00 97.9 F 54 L 16 112/68 98 08/27/21 18:19 52 L 18 126/80 98 08/27/21 15:05 97.2 F L 53 L 18 119/72 99 Intake and Output 08/27/21 08/28/21 08/28/21 22:59 06:59 14:59 Intake Total 68.042 600 Output Total 450 960 Balance -381.958 -360 Intake: Intake, IV Titration 68.042 Amount Heparin Sod,Pork in 0.45% 68.042 NaCl 25,000 unit In 0.45 % NaCl 1 250ml.bag @ 18 UNITS/KG/HR 8.165 mls/hr IV .Q24H [facility] Rx#: [id number] Oral 600 Output: Urine 450 960 Other: Weight 41.9 kg Patient is lying in the bed comfortably, no acute distress, awake alert and oriented.. Patient is cachectic HEENT: Normocephalic. Neck is supple. Pupils reactive. Nostrils clear. Oral cavity is moist. Neck reveals no JVD, carotid bruits, or thyromegaly. CHEST EXAMINATION: Trachea is central. Symmetrical expansion. Bilateral diminished air entry. Prolonged expiration. No wheezing or rhonchi.. The patient has significant diminished breath sounds bilaterally and the patient has scattered rhonchi and scattered expiratory wheezes throughout the lung arellano. He also has prolongation of the exhalation phase of breathing. He has a barrel chest. CARDIAC: Normal S1, S2 with no gallops. No murmurs ABDOMEN: Soft. Bowel sounds normal. No organomegaly. No abdominal bruits. Extremities: reveal no edema. No clubbing or cyanosis Neurologically awake, alert, oriented x3 with well-coordinated movements. No focal deficits noted Skin: No rash or skin lesions. Psychiatric: Cooperative. Nonsuicidal Musculoskeletal: No joint swelling or deformity. Normal range of motion. Results - Laboratory Findings CBC and BMP: 08/28/21 08:33 08/27/21 12:32 PT/INR, D-dimer PT 10.1 sec (9.0-12.0) 08/27/21 12:32 INR 0.9 (<1.2) 08/27/21 12:32 D-Dimer 0.61 mg/L FEU (<0.60) H 08/27/21 12:32 Abnormal lab findings: Abnormal Labs 08/27/21 08/27/21 08/27/21 12:32 12:32 22:08 RBC APTT 104.7 H* D-Dimer 0.61 H Sodium 135 L BUN 7 L Glucose 107 H 08/28/21 08/28/21 08:33 08:33 RBC 4.22 L APTT 54.8 H D-Dimer Sodium BUN Glucose - Diagnostic Findings Chest x-ray: image reviewed CT scan - chest: image reviewed Assessment and Plan Plan: 1 acute pulmonary embolism involving the segmental and subsegmental branches of the right upper lobe. I reviewed the CT angiogram myself. I also examined the patient and listening to his history. In fact his chest pain is nonspecific. D-dimer was negative at time of admission at 0.6 and his Doppler of the lower extremity was also negative. I highly doubt the possibility of pulmonary embolism. Nevertheless, based on his previous history approximately atrial fibrillation, the patient with obvious need to be maintained on anticoagulation for that reason I made recommendations for the patient on Xarelto. 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 He'll be started at 50 mg by mouth twice a day for a week and following that the patient will be maintained on a dose of 20 mg. Smoking cessation counseling Outpatient evaluation for his COPD and this will involve pulmonary function testing, alpha-1 antitrypsin analysis and further treatment with a maintenance inhaler to optimize his COPD and genital. Clear to discharge from the pulmonary standpoint.
== END 2021-08-28 14:53 | disposition home or self-care (01) | DRG 175 ==
LOC: EC 12:21 → 3SCARD 15:47
PROVIDERS: ADMIT Internal Medicine; ATTEND Internal Medicine
DX: I26.93 Single subsegmental thrombotic pulmonary embolism without acute cor pulmonale (principal); E43 Unspecified severe protein-calorie malnutrition; J96.11 Chronic respiratory failure with hypoxia; R64 Cachexia; Z68.1 Body mass index [BMI] 19.9 or less, adult; J43.9 Emphysema, unspecified; I48.0 Paroxysmal atrial fibrillation; Z20.822 Contact with and (suspected) exposure to COVID-19; G89.29 Other chronic pain; M54.2 Cervicalgia; M54.9 Dorsalgia, unspecified; F17.210 Nicotine dependence, cigarettes, uncomplicated; Z71.6 Tobacco abuse counseling; Z79.891 Long term (current) use of opiate analgesic; Z79.899 Other long term (current) drug therapy; Z82.49 Family history of ischemic heart disease and other diseases of the circulatory system
CPT/HCPCS: 36415; 71046; 71275; 80053; 83690; 83735; 84484; 85025; 85379; 85610; 85730; 87635; 93970; 99291

== ENCOUNTER 2022-10-19 16:58 | Inpatient (IN) | payer MEDICARE ==
[2022-10-19] MEDS ORDERED: SODIUM CHLORIDE 0.9% 1,000 ML IV STA (17:40)
[2022-10-19] MEDS ORDERED: ACETAMINOPHEN TAB 500 MG TAB PO STA (17:40)
--- NOTE | 2022-10-19 17:46 | ED ---
General Adult HPI - General Chief complaint: Weakness Stated complaint: Weakness Time Seen by Provider: 10/19/22 17:19 Source: EMS Mode of arrival: EMS - History of Present Illness Initial comments: Dictation was produced using [employer] dictation software. please excuse any gr ammatical, word or spelling errors. Chief Complaint: 62-year-old male presents emergency peripheral edema weakness History of Present Illness: 62-year-old male. Is brought in by EMS from home. Patient states is not feeling well today. Patient states he feels cold. Denies any cough. No shortness of breath runny nose. Denies any abdominal pain. No diarrhea. Denies any rash. The ROS documented in this emergency department record has been reviewed and confirmed by me. Those systems with pertinent positive or negative responses have been documented in the HPI. All other systems are other negative and/or noncontributory. PHYSICAL EXAM: General Impression: Alert and oriented x3, not in acute distress, cachectic HEENT: Normocephalic atraumatic, extra-ocular movements intact, pupils equal and reactive to light bilaterally, mucous membranes moist, poor dentition Cardiovascular: Heart regular rate and rhythm Chest: Able to complete full sentences, no retractions, no tachypnea Abdomen: abdomen soft, non-tender, non-distended, no organomegaly Musculoskeletal: Pulses present and equal in all extremities, no peripheral edema Motor: no focal deficits noted Neurological: CN II-XII grossly intact, no focal motor or sensory deficits noted Skin: Intact with no visualized rashes Psych: Normal affect and mood ED course: 62-year-old male presents emergency department for constitutional symptoms. Signs upon arrival shows rectal temperature 100.5, heart rate 121. Nursing notes and chart review was performed EKG interpreted by me: Ventricular rate 117, sinus tachycardia,. 160, QRS 92, QTc 385. Interpretation limited due to artifact.. No WI prolongation, no QTC prolongation, no ST or T-wave changes noted. Overall this EKG is nonspecific. Laboratory evaluation obtained. CBC [place]. Coag panel is negative. Metabolic panel shows mild lactic acidosis at 2.2. As labs within acceptable limits. Urinalysis negative. Viral PCR is negative. Chest x-ray shows no acute processes. Patient observed in emergency department for approximately 3 hours. Reevaluated bedside 8:30 PM found to be stable medical condition. Symptoms concerning for serious. At this point there is high suspicion of serious bacterial illness however no identifiable cause. Patient given broad-spectrum antibiotics admitted to the hospital consultation infectious disease. Case discussed with Dr. Liu was went except patient's care. Was pt. sent in by a medical professional or institution (, PA, JAIL OFFICER, urgent care, hospital, or residential...) When possible be specific @ -No Did you speak to anyone other than the patient for history (EMS, parent, family, police, friend...)? What history was obtained from this source @ -EMS Did you review nursing and triage notes (agree or disagree)? Why? @ -I reviewed and agree with nursing and triage notes Were old charts reviewed (outside hosp., previous admission, EMS record, old EK G, old radiological studies, urgent care reports/EKG's, residential records)? Report findings @ -No old charts were reviewed Differential Diagnosis (chest pain, altered mental status, abdominal pain women, abdominal pain men, vaginal bleeding, weakness, fever, dyspnea, syncope, headache, dizziness, GI bleed, back pain, seizure, CVA, palpatations, mental health)? @ -Differential Fever: Pneumonia, viral URI, endocarditis, myocarditis, pericarditis, otitis, sinusitis, peritonsillar Abscess, retropharyngeal Abscess, epiglottitis, periton itis, appendicitis, Edie cystitis, diverticulitis, hepatitis, colitis, UTI, PID, TOA, pyelonephritis, prostatitis, epididymitis, meningitis, encephalitis, pulmonary embolism, CVA, thyroid storm, pancreatitis, adrenal crisis, cavernous sinus thrombosis, this is not meant to be an all-inclusive list. EKG interpreted by me (3pts min.). @ -As above X-rays interpreted by me (1pt min.). @ -See above CT interpreted by me (1pt min.). @ -None done U/S interpreted by me (1pt. min.). @ -None done What testing was considered but not performed or refused? (CT, X-rays, U/S, labs)? Why? @ -The abdomen and pelvis was considered however patient does not have any abdominal pain What meds were considered but not given or refused? Why? @ -none Did you discuss the management of the patient with other professionals (professionals i.e. , PA, JAIL OFFICER, lab, RT, psych nurse, social worker psychiatric, electrician aircraft, teacher, sba business development officer, correctional case records supervisor)? Give summary @ -See above Was smoking cessation discussed for >3mins.? @ -No Was critical care preformed (if so, how long)? @ -No Were there social determinants of health that impacted care today? How? (Homelessness, low income, unemployed, alcoholism, drug addiction, transportation, low edu. Level, literacy, decrease access to med. care, care home, rehab)? @ -No Was there de-escalation of care discussed even if they declined (Discuss DNR or withdrawal of care, Hospice)? DNR status @ -No What co-morbidities impacted this encounter? (DM, HTN, Smoking, COPD, CAD, Cancer, CVA, ARF, Chemo, Hep., AIDS, mental health diagnosis, sleep apnea, morbid obesity)? @ -None Was patient admitted / discharged? Hospital course, mention meds given and route, prescriptions, significant lab abnormalities, going to OR and other pertinent info. @ -See above Undiagnosed new problem with uncertain prognosis? @ -No Drug Therapy requiring intensive monitoring for toxicity (Heparin, Nitro, Insulin, Cardizem)? @ -No Were any procedures done? @ -No Diagnosis/symptom? @ -SIRS Acute, or Chronic, or Acute on Chronic? @ -Acute Uncomplicated (without systemic symptoms) or Complicated (systemic symptoms)? @ -Complicated Side effects of treatment? @ -No Exacerbation, Progression, or Severe Exacerbation? @ -No Poses a threat to life or bodily function? How? (Chest pain, USA, MS, pneumonia, PE, COPD, DKA, ARF, appy, cholecystitis, CVA, Diverticulitis, Homicidal, Suicidal, threat to staff... and all critical care pts) @ -Yes - Related Data Home Medications Medication Instructions Recorded Confirmed oxyCODONE HCL [OxyIR] 5 mg PO QID 07/29/20 10/19/22 Rivaroxaban [Xarelto] 20 mg PO DAILY 10/19/22 10/19/22 Previous Rx's Medication Instructions Recorded Metoprolol Tartrate [Lopressor] 25 mg PO BID #60 tab 10/05/20 Allergies Allergy/AdvReac Type Severity Reaction Status Date / Time No Known Allergies Allergy Verified 10/19/22 20:32 Review of Systems ROS Statement: Those systems with pertinent positive or pertinent negative responses have been documented in the HPI. ROS Other: All systems not noted in ROS Statement are negative. Past Medical History Past Medical History: Atrial Fibrillation Additional Past Medical History / Comment(s): chronic back and neck pain History of Any Multi-Drug Resistant Organisms: None Reported Past Surgical History: Orthopedic Surgery Additional Past Surgical History / Comment(s): right hip surgery Past Anesthesia/Blood Transfusion Reactions: No Reported Reaction Past Psychological History: No Psychological Hx Reported Smoking Status: Current every day smoker Past Alcohol Use History: None Reported Past Drug Use History: Marijuana - Past Family History Father Family Medical History: Myocardial Infarction ([place]) Brother(s) Family Medical History: Myocardial Infarction ([place]) Course Vital Signs 10/19/22 10/19/22 10/19/22 17:00 17:01 17:07 Temperature 98.1 F Pulse Rate 121 H Respiratory 22 22 Rate Blood Pressure 109/72 O2 Sat by Pulse 99 94 L Oximetry 10/19/22 10/19/22 10/19/22 17:22 18:50 20:09 Temperature 103.5 F H 101.1 F H Pulse Rate 97 86 Respiratory 18 18 Rate Blood Pressure 121/73 121/73 O2 Sat by Pulse 98 97 Oximetry Medical Decision Making - Lab Data Result diagrams: 10/19/22 17:46 10/19/22 17:46 Lab Results 10/19/22 10/19/22 10/19/22 Range/Units 17:46 17:46 17:46 WBC 12.2 H (3.8-10.6) k/uL RBC 5.54 (4.30-5.90) m/uL Hgb 16.4 (13.0-17.5) gm/dL Hct 50.4 (39.0-53.0) % MCV 90.8 (80.0-100.0) fL MCH 29.5 (25.0-35.0) pg MCHC 32.5 (31.0-37.0) g/dL RDW 14.2 (11.5-15.5) % Plt Count 158 (150-450) k/uL MPV 7.9 Neutrophils % 89 % Lymphocytes % 7 % Monocytes % 2 % Eosinophils % 1 % Basophils % 0 % Neutrophils # 10.8 H (1.3-7.7) k/uL Lymphocytes # 0.9 L (1.0-4.8) k/uL Monocytes # 0.3 (0-1.0) k/uL Eosinophils # 0.1 (0-0.7) k/uL Basophils # 0.0 (0-0.2) k/uL PT 12.2 H (9.0-12.0) sec INR 1.2 H (<1.2) APTT 23.5 (22.0-30.0) sec Sodium (137-145) mmol/L Potassium (3.5-5.1) mmol/L Chloride (98-107) mmol/L Carbon Dioxide (22-30) mmol/L Anion Gap mmol/L BUN (9-20) mg/dL Creatinine (0.66-1.25) mg/dL Est GFR (CKD-EPI)AfAm (>60 ml/min/1.73 sqM) Est GFR (CKD-EPI)NonAf (>60 ml/min/1.73 sqM) Glucose (74-99) mg/dL Lactic Ac Sepsis Rflx Plasma Lactic Acid Gil (0.7-2.0) mmol/L Calcium (8.4-10.2) mg/dL Magnesium (1.6-2.3) mg/dL Total Bilirubin (0.2-1.3) mg/dL AST (17-59) U/L ALT (4-49) U/L Alkaline Phosphatase (38-126) U/L Total Protein (6.3-8.2) g/dL Albumin (3.5-5.0) g/dL Urine Color Yellow Urine Appearance Clear (Clear) Urine pH 6.5 (5.0-8.0) Ur Specific [place] 1.013 (1.001-1.035) Urine Protein Negative (Negative) Urine Glucose (UA) Negative (Negative) Urine Ketones Trace H (Negative) Urine Blood Negative (Negative) Urine Nitrite Negative (Negative) Urine Bilirubin Negative (Negative) Urine Urobilinogen <2.0 (<2.0) mg/dL Ur Leukocyte Esterase Negative (Negative) Influenza Type A (PCR) (Not Detectd) Influenza Type B (PCR) (Not Detectd) RSV (PCR) (Not Detectd) SARS-CoV-2 (PCR) (Not Detectd) 10/19/22 10/19/22 10/19/22 Range/Units 17:46 17:46 17:46 WBC (3.8-10.6) k/uL RBC (4.30-5.90) m/uL Hgb (13.0-17.5) gm/dL Hct (39.0-53.0) % MCV (80.0-100.0) fL MCH (25.0-35.0) pg MCHC (31.0-37.0) g/dL RDW (11.5-15.5) % Plt Count (150-450) k/uL MPV Neutrophils % % Lymphocytes % % Monocytes % % Eosinophils % % Basophils % % Neutrophils # (1.3-7.7) k/uL Lymphocytes # (1.0-4.8) k/uL Monocytes # (0-1.0) k/uL Eosinophils # (0-0.7) k/uL Basophils # (0-0.2) k/uL PT (9.0-12.0) sec INR (<1.2) APTT (22.0-30.0) sec Sodium 135 L (137-145) mmol/L Potassium 4.1 (3.5-5.1) mmol/L Chloride 99 (98-107) mmol/L Carbon Dioxide 28 (22-30) mmol/L Anion Gap 8 mmol/L BUN 9 (9-20) mg/dL Creatinine 0.56 L (0.66-1.25) mg/dL Est GFR (CKD-EPI)AfAm >90 (>60 ml/min/1.73 sqM) Est GFR (CKD-EPI)NonAf >90 (>60 ml/min/1.73 sqM) Glucose 130 H (74-99) mg/dL Lactic Ac Sepsis Rflx Plasma Lactic Acid Gil 2.2 H* (0.7-2.0) mmol/L Calcium 8.5 (8.4-10.2) mg/dL Magnesium 1.6 (1.6-2.3) mg/dL Total Bilirubin 1.0 (0.2-1.3) mg/dL AST 34 (17-59) U/L ALT 23 (4-49) U/L Alkaline Phosphatase 77 (38-126) U/L Total Protein 7.6 (6.3-8.2) g/dL Albumin 4.2 (3.5-5.0) g/dL Urine Color Urine Appearance (Clear) Urine pH (5.0-8.0) Ur Specific [place] (1.001-1.035) Urine Protein (Negative) Urine Glucose (UA) (Negative) Urine Ketones (Negative) Urine Blood (Negative) Urine Nitrite (Negative) Urine Bilirubin (Negative) Urine Urobilinogen (<2.0) mg/dL Ur Leukocyte Esterase (Negative) Influenza Type A (PCR) Not Detected (Not Detectd) Influenza Type B (PCR) Not Detected (Not Detectd) RSV (PCR) Not Detected (Not Detectd) SARS-CoV-2 (PCR) Not Detected (Not Detectd) 10/19/22 Range/Units 18:19 WBC (3.8-10.6) k/uL RBC (4.30-5.90) m/uL Hgb (13.0-17.5) gm/dL Hct (39.0-53.0) % MCV (80.0-100.0) fL MCH (25.0-35.0) pg MCHC (31.0-37.0) g/dL RDW (11.5-15.5) % Plt Count (150-450) k/uL MPV Neutrophils % % Lymphocytes % % Monocytes % % Eosinophils % % Basophils % % Neutrophils # (1.3-7.7) k/uL Lymphocytes # (1.0-4.8) k/uL Monocytes # (0-1.0) k/uL Eosinophils # (0-0.7) k/uL Basophils # (0-0.2) k/uL PT (9.0-12.0) sec INR (<1.2) APTT (22.0-30.0) sec Sodium (137-145) mmol/L Potassium (3.5-5.1) mmol/L Chloride (98-107) mmol/L Carbon Dioxide (22-30) mmol/L Anion Gap mmol/L BUN (9-20) mg/dL Creatinine (0.66-1.25) mg/dL Est GFR (CKD-EPI)AfAm (>60 ml/min/1.73 sqM) Est GFR (CKD-EPI)NonAf (>60 ml/min/1.73 sqM) Glucose (74-99) mg/dL Lactic Ac Sepsis Rflx Y Plasma Lactic Acid Gil (0.7-2.0) mmol/L Calcium (8.4-10.2) mg/dL Magnesium (1.6-2.3) mg/dL Total Bilirubin (0.2-1.3) mg/dL AST (17-59) U/L ALT (4-49) U/L Alkaline Phosphatase (38-126) U/L Total Protein (6.3-8.2) g/dL Albumin (3.5-5.0) g/dL Urine Color Urine Appearance (Clear) Urine pH (5.0-8.0) Ur Specific [place] (1.001-1.035) Urine Protein (Negative) Urine Glucose (UA) (Negative) Urine Ketones (Negative) Urine Blood (Negative) Urine Nitrite (Negative) Urine Bilirubin (Negative) Urine Urobilinogen (<2.0) mg/dL Ur Leukocyte Esterase (Negative) Influenza Type A (PCR) (Not Detectd) Influenza Type B (PCR) (Not Detectd) RSV (PCR) (Not Detectd) SARS-CoV-2 (PCR) (Not Detectd) Disposition Clinical Impression: SIRS (systemic inflammatory response syndrome) Disposition: ADMITTED IP TO THIS HOSP Condition: Fair Decision Time: 20:38
[2022-10-19 17:58] LABS: Basophils % (A) 0 %; Eosinophils # (A) 0.1 k/uL (0-0.7); Eosinophils % (A) 1 %; HCT 50.4 % (39.0-53.0); HGB 16.4 gm/dL (13.0-17.5); Lymphocytes # (A) 0.9 k/uL (1.0-4.8); Lymphocytes % (A) 7 %; MCH 29.5 pg (25.0-35.0); MCHC 32.5 g/dL (31.0-37.0); MCV 90.8 fL (80.0-100.0); Mean Platelet Volume 7.9; Monocytes # (A) 0.3 k/uL (0-1.0); Monocytes % (A) 2 %; Neutrophils # (A) 10.8 k/uL (1.3-7.7); Neutrophils % (A) 89 %; Platelet Count 158 k/uL (150-450); RBC 5.54 m/uL (4.30-5.90); RDW 14.2 % (11.5-15.5); WBC 12.2 k/uL (3.8-10.6)
[2022-10-19 18:11] LABS: INR 1.2 (<1.2); Partial Thromboplastin Time 23.5 sec (22.0-30.0); Prothrombin Time 12.2 sec (9.0-12.0)
[2022-10-19 18:17] LABS: ALT 23 U/L (4-49); AST 34 U/L (17-59); African American GFR (CKD) >90 (>60 ml/min/1.73 sqM); Albumin 4.2 g/dL (3.5-5.0); Alkaline Phosphatase 77 U/L (38-126); Anion Gap 8 mmol/L; Blood Urea Nitrogen 9 mg/dL (9-20); Calcium 8.5 mg/dL (8.4-10.2); Carbon Dioxide 28 mmol/L (22-30); Chloride 99 mmol/L (98-107); Glucose 130 mg/dL (74-99); Magnesium 1.6 mg/dL (1.6-2.3); Non-African American GFR(CKD) >90 (>60 ml/min/1.73 sqM); Potassium 4.1 mmol/L (3.5-5.1); Sodium 135 mmol/L (137-145); Total Protein 7.6 g/dL (6.3-8.2)
--- NOTE | 2022-10-19 18:21 | XR ---
EXAMINATION TYPE: XR chest 2V DATE OF EXAM: 10/19/2022 COMPARISON: CTA chest and chest x-ray August 27, 2021 HISTORY: Weakness. TECHNIQUE: Frontal and lateral views of the chest are obtained. FINDINGS: Background chronic emphysematous and pulmonary fibrotic changes redemonstrated There is no suspicious new focal air space opacity, pleural effusion, or pneumothorax seen. The cardiac silhoue tte size is stable and within normal limits. The osseous structures are intact. IMPRESSION: Chronic changes without acute pulmonary process. No significant change from prior.
[2022-10-19 20:02] LABS: Appearance,Urine Clear (Clear); Bilirubin,Urine Negative (Negative); Blood,Urine Negative (Negative); Color,Urine Yellow; Glucose,Urine (UA) Negative (Negative); Ketones,Urine Trace (Negative); Leukocyte Esterase,Urine Negative (Negative); Nitrite,Urine Negative (Negative); PH, Urine 6.5 (5.0-8.0); Protein,Urine Negative (Negative); Specific Gravity,Urine 1.013 (1.001-1.035); Urobilinogen,Urine <2.0 mg/dL (<2.0)
[2022-10-19] MEDS ORDERED: CEFEPIME 2 GM in SODIUM CHLORIDE 0.9% 100 ML IVPB STA (20:04)
[2022-10-19] MEDS ORDERED: VANCOMYCIN IV PER PHARMACY 1 EACH MISC MISCELLANE PRN (20:04)
[2022-10-19] MEDS ORDERED: NALOXONE 0.4 MG/ML 1 ML VIAL IV PRN (20:10)
[2022-10-19] MEDS ORDERED: ACETAMINOPHEN TAB 325 MG TAB PO PRN (20:10)
[2022-10-19] MEDS ORDERED: VANCOMYCIN 750 MG in SODIUM CHLORIDE 0.9% 250 ML IVPB STA (20:14)
[2022-10-19] MEDS: SODIUM CHLORIDE 0.9% 1,000 ML IV SCH (20:16)
[2022-10-20] MEDS: SODIUM CHLORIDE 0.9% 1,000 ML IV SCH ×2 (04:11→16:43)
[2022-10-20] MEDS: VANCOMYCIN 750 MG in SODIUM CHLORIDE 0.9% 250 ML IVPB SCH ×2 (04:11→14:06)
--- NOTE | 2022-10-20 04:19 | P.HPIM ---
History of Present Illness H&P Date: 10/19/22 Chief Complaint: not feeling well, fever 62 year old male with afib on xarelto patient coming from home for evaluation , for not feeling well, he reports generalized weakness and feeling fatigued, he is also having fever, and chills. he denies headache, changes in vision , denies nausea or vomiting , denies URI symptoms , denies cough , chest pain , or trouble breathing, denies abd pain , or changes in urinary or bowel habits. denies any bleeding , denies any recent travel or hospital stay . he lives alone, and eats microwaveable food, he does not have food stamps and finds it challenging to get quality food. workup in the ED showed leukocytosis , fever, elevated lactic acid UA was negative CXR negative for acute pathology acute viral respiratory panel negative he admits to tobacco smoking , and marijuana , denies alcohl denies any significant weight loss, and claims he has always been thin Review of Systems Pertinent positives as noted in HPI. All other systems were reviewed and are negative Past Medical History Past Medical History: Atrial Fibrillation Additional Past Medical History / Comment(s): chronic back and neck pain History of Any Multi-Drug Resistant Organisms: None Reported Past Surgical History: Orthopedic Surgery Additional Past Surgical History / Comment(s): right hip surgery Past Anesthesia/Blood Transfusion Reactions: No Reported Reaction Past Psychological History: No Psychological Hx Reported Smoking Status: Current every day smoker Past Alcohol Use History: None Reported Past Drug Use History: Marijuana - Past Family History Father Family Medical History: Myocardial Infarction ([place]) Brother(s) Family Medical History: Myocardial Infarction ([place]) Medications and Allergies Home Medications Medication Instructions Recorded Confirmed Type oxyCODONE HCL [OxyIR] 5 mg PO QID 07/29/20 10/19/22 History Metoprolol Tartrate [Lopressor] 25 mg PO BID #60 tab 10/05/20 10/19/22 Rx Rivaroxaban [Xarelto] 20 mg PO DAILY 10/19/22 10/19/22 History Allergies Allergy/AdvReac Type Severity Reaction Status Date / Time No Known Allergies Allergy Verified 10/19/22 20:32 Physical Exam Vitals: Vital Signs Temp Pulse Pulse Resp BP BP Pulse Ox 10/20/22 00:58 98.4 F 72 17 108/66 97 10/19/22 21:49 98 F 75 18 112/63 100 10/19/22 20:09 86 18 121/73 97 10/19/22 19:40 99.9 F H 10/19/22 18:50 101.1 F H 97 18 121/73 98 10/19/22 17:22 103.5 F H 10/19/22 17:07 22 10/19/22 17:01 98.1 F 121 H 22 109/72 94 L 10/19/22 17:00 99 Intake and Output 10/19/22 10/19/22 10/20/22 14:59 22:59 06:59 Other: Weight 39.5 kg Constitutional: No acute distress, conversant, pleasant, cachectic Eyes: Anicteric sclerae, moist conjunctiva, Pupils equal round reactive to light ENMT: NC/AT Oropharynx clear, no erythema, or exudates Neck: Supple, no masses, or JVD No carotid bruits No thyromegaly Lungs: Clear to auscultation Clear to percussion Normal respiratory effort, no accessory muscle use Cardiovascular: Heart regular in rate and rhythm, No murmurs, gallops, or rubs No peripheral edema Abdominal: Soft Nontender, no guarding, rebound or rigidity Abdomen moving with respiration Normoactive bowel sounds No hepatomegaly, No splenomegaly No palpable mass No abdominal wall hernia noted Skin: Normal temperature, tone, texture, turgor No induration No subcutaneous nodules No rash, lesions No ulcers Extremities: No digital cyanosis No clubbing Pedal pulses intact and symmetrical Radial pulses intact and symmetrical No calf tenderness Psychiatric: Alert and oriented to person, place and time Neuro Muscles Strength 4/5 in all 4 extremities Sensation to light touch grossly present throughout Cranial nerves II-XII grossly intact Lymphatics: no palpable cervical or supraclavicular lymph nodes Results CBC & Chem 7: 10/19/22 17:46 10/19/22 17:46 Labs: Abnormal Lab Results - Last 24 Hours (Table) 10/19/22 10/19/22 10/19/22 Range/Units 17:46 17:46 17:46 WBC 12.2 H (3.8-10.6) k/uL Neutrophils # 10.8 H (1.3-7.7) k/uL Lymphocytes # 0.9 L (1.0-4.8) k/uL PT 12.2 H (9.0-12.0) sec INR 1.2 H (<1.2) Sodium (137-145) mmol/L Creatinine (0.66-1.25) mg/dL Glucose (74-99) mg/dL Plasma Lactic Acid Gil (0.7-2.0) mmol/L Urine Ketones Trace H (Negative) 10/19/22 10/19/22 Range/Units 17:46 17:46 WBC (3.8-10.6) k/uL Neutrophils # (1.3-7.7) k/uL Lymphocytes # (1.0-4.8) k/uL PT (9.0-12.0) sec INR (<1.2) Sodium 135 L (137-145) mmol/L Creatinine 0.56 L (0.66-1.25) mg/dL Glucose 130 H (74-99) mg/dL Plasma Lactic Acid Gil 2.2 H* (0.7-2.0) mmol/L Urine Ketones (Negative) Assessment and Plan Assessment: SIRS (fever, leukocytosis ) , generalized weakness, rule out infectious process lactic acidosis --> resolved follow up cultures empirically started on vanco UA negative CXR negative acute respiratory viral panel negative patient spiking fever, tylenol PRN IVF hydration with normal saline supportive care monitor vital signs cachectic social services consult to assist with living situation and food stamps chronic conditions afib on xarelto denies any bleeding full code DVT PPX on xarelto for afib
[2022-10-20 09:12] LABS: African American GFR (CKD) 127.1 (60.0-200.0); Non-African American GFR(CKD) 109.7 (60.0-200.0)
[2022-10-20] MEDS: RIVAROXABAN 20 MG TAB PO SCH (10:03)
[2022-10-20] MEDS: METOPROLOL TARTRATE 25 MG TAB PO SCH ×2 (10:03→20:10)
--- NOTE | 2022-10-20 11:23 | P.PN ---
Subjective Progress Note Date: 10/20/22 Hospital Course: 62-year-old male with history of atrial fibrillation on anticoagulation, chronic back and neck pain on chronic opiate therapy presenting with generalized weakness, fatigue, fevers and chills. He also has failure to thrive. Patient was initially tachycardic and febrile. Laboratory workup significant for WBC of 12.2, neutrophilic predominant. Lactic acid of 2.2, normalized to 1 after IV fluids, negative UA, negative respiratory viral panel. Subjective: Patient seen and examined at bedside. No acute events overnight. He denies any chest pain, shortness of breath, abdominal pain, diarrhea, constipation, or urinary complaints. Pertinent positives and negatives as discussed above, a complete review of systems was performed and all other systems are negative. Vitals Signs Reviewed. General: nontoxic, no distress, appears older than stated age, cachectic Derm: warm, dry Head: atraumatic, normocephalic, symmetric, posterior well-circumscribed mass Eyes: EOMI, no lid lag, anicteric sclera Mouth: no lip lesion, mucus membranes moist, poor dentition with multiple dental caries Cardiovascular: S1S2 reg, no murmur Lungs: CTA bilateral, no rhonchi, no rales , no accessory muscle use Abdominal: soft, nontender to palpation, no guarding, no appreciable organomegaly Ext: no gross muscle atrophy, no edema, no contractures Neuro: CN II-XI grossly intact, no focal neuro deficits Psych: Alert, oriented, appropriate affect Assessment and Plan: SIRS Leukocytosis Lactic acidosis Fever of unknown origin Posterior neck mass -Differential includes infection, malignancy, inflammatory disease -CT abdomen and pelvis pending -Posterior neck mass ultrasound with Doppler -TSH pending -Blood cultures pending -Rest of the infectious process has been negative so far -Patient remains on IV antibiotics -ID consulted Failure to thrive Cachexia - Social work consult - Nutrition consult Multiple dental caries -Outpatient follow-up Chronic conditions: Atrial fibrillation - Continue anticoagulation Chronic neck and back pain -Monitor for withdrawal DVT ppx: On anticoagulation Code status: Full Code Anticipated discharge place: Pending clinical course Anticipated discharge time: Pending clinical course Objective - Vital Signs Vital signs: Vital Signs Temp 97.9 F 10/20/22 07:10 Pulse 64 10/20/22 07:10 Resp 16 10/20/22 07:10 BP 98/60 10/20/22 07:10 Pulse Ox 98 01/27/23 07:10 FiO2 Intake & Output 10/19/22 10/20/22 10/20/22 18:59 06:59 18:59 Weight 43.091 kg 39.5 kg Other: # Voids 1 - Labs CBC & Chem 7: 10/19/22 17:46 10/20/22 05:19 Labs: Abnormal Lab Results - Last 24 Hours (Table) 10/19/22 10/19/22 10/19/22 Range/Units 17:46 17:46 17:46 WBC 12.2 H (3.8-10.6) k/uL Neutrophils # 10.8 H (1.3-7.7) k/uL Lymphocytes # 0.9 L (1.0-4.8) k/uL PT 12.2 H (9.0-12.0) sec INR 1.2 H (<1.2) Sodium (137-145) mmol/L Creatinine (0.66-1.25) mg/dL Glucose (74-99) mg/dL Plasma Lactic Acid Gil (0.7-2.0) mmol/L Urine Ketones Trace H (Negative) 10/19/22 10/19/22 Range/Units 17:46 17:46 WBC (3.8-10.6) k/uL Neutrophils # (1.3-7.7) k/uL Lymphocytes # (1.0-4.8) k/uL PT (9.0-12.0) sec INR (<1.2) Sodium 135 L (137-145) mmol/L Creatinine 0.56 L (0.66-1.25) mg/dL Glucose 130 H (74-99) mg/dL Plasma Lactic Acid Gil 2.2 H* (0.7-2.0) mmol/L Urine Ketones (Negative)
[2022-10-20 13:05] VITALS: BMI 12.8
--- NOTE | 2022-10-20 14:12 | US ---
EXAMINATION TYPE: US thyroid st tissue head/neck DATE OF EXAM: 10/20/2022 COMPARISON: NONE CLINICAL HISTORY: posterior neck mass. Pt states palpable lump midline posterior neck x years Hypoechoic lesion with posterior enhancement at pt's palpable site= 2.2 x 1.0 x 2.7 cm / No blood f low is visualized within this area IMPRESSION: 1. Hypoechoic lesion at the level of the palpable abnormality midline posterior neck.
--- NOTE | 2022-10-20 15:16 | CT ---
EXAMINATION: CT CHEST, ABDOMEN AND PELVIS WITH IV CONTRAST DATE OF EXAMINATION: 10/20/2022. COMPARISON: CTA chest on 08/27/2021. INDICATION: Fever of unknown origin PROCEDURE: Axial CT of the chest, abdomen and pelvis was performed following the intravenous adminis tration of 100 ml Isovue 300. Coronal and sagittal reformats were performed. CT dose lowering techni ques were used, to include: automated exposure control, adjustment for patient size, and/or use of it erative reconstruction. FINDINGS: CHEST: Mediastinum and Margy: There is no axillary, mediastinal or hilar lymphadenopathy. Pleural and Pericardial spaces: There is a small right and small left pleural effusion. Significant p ericardial effusion is identified Cardiovascular: The thoracic aorta is normal in size without evidence of aneurysm or dissection. Pulmonary Artery: There are no central pulmonary arterial filling defects. Lung Parenchyma and Airways: There is severe diffuse centrilobular emphysema and upper lobe predomina nt paraseptal emphysema. There are scattered areas of bronchiectasis also noted. There is patchy pare nchymal changes seen within the left lower lobe which would raise the possibility of pneumonia. A com ponent of atelectasis would also be a possibility. Similar findings are seen in the posterior aspect of the lingular segment of the left upper lobe and portions of the right lower lobe. ABDOMEN: Liver and Biliary system: Normal. Adrenal glands: Normal. Kidneys and ureters: Normal. Spleen: Normal. Pancreas: Normal. Gallbladder: Normal. Lymph nodes, Peritoneum and mesentery: There is no mesenteric or retroperitoneal lymphadenopathy. Gastrointestinal tract: There are no dilated loops of bowel or free intraperitoneal air. . The appe ndix is not clearly seen with no secondary changes of appendicitis otherwise identified. Aorta/IVC: There is mild vascular calcification throughout the abdominal aorta without evidence of aneurysmal dilation or dissection. IVC normal. Abdominal wall: Normal. PELVIS: Fluid: There is no free fluid in the pelvis. Lymph Nodes: There is no pelvic or inguinal lymphadenopathy.. Urinary bladder: Normal. BONES: The visualized intramedullary nail is seen within the right femur along its proximal aspect. The bones are diffusely demineralized. There are no aggressive osseous lesions. ADDITIONAL SIGNIFICANT FINDINGS: None. IMPRESSION: . Scattered patchy opacities within the lungs bilaterally described above may represent pneumonia wit h a component of atelectasis also possibility. 2. Severe emphysema. 3. Small bilateral pleural effusions. 4. No acute process otherwise seen within the abdomen or pelvis.
--- NOTE | 2022-10-20 16:46 | P.CONS ---
History of Present Illness - Reason for Consult Consult date: 10/20/22 SIRS/sepsis Requesting physician: Nils Baca - Chief Complaint Shortness of breath x one day - History of Present Illness Patient is a 61-year-old male with a past medical history significant for atrial fibrillation on xarelto, also history of chronic lower back and neck pain patient was brought into the for evaluation of generalized weakness and increasing shortness of breath that apparently started the day of presentation to the hospital. Denies having any chest pain he did have occasional cough mild to moderate intestinal back up any sputum and she denies having any nausea no vomiting no jugular for the pain or any diarrhea and denies having any urinary symptoms with August the patient was evaluated on arrival to the area patient did have a fever of 103.5F, the patient is afebrile this morning, patient did have a mild hypoxemia with O2 sats of 94% requiring some supplemental oxygen however currently the patient is a 96% on room air patient did have a white count of 12.2 with a left shift creatinine has been normal did have elevated lac tic acid of 2.2 subsequently normalized liver enzymes are normal. Urine has been Negative influenza RSV and covid 19 pcr has been negative, patient did have a chest x-ray with chronic changes without acute pulmonary process patient did receive a dose of cefepime in the subsequently has been continued on vancomycin and infectious disease was consulted for further management of antibiotic therapy Review of Systems Positive point has been mentioned in the HPI rest of the systems are negative Past Medical History Past Medical History: Atrial Fibrillation Additional Past Medical History / Comment(s): chronic back and neck pain History of Any Multi-Drug Resistant Organisms: None Reported Past Surgical History: Orthopedic Surgery Additional Past Surgical History / Comment(s): right hip surgery Past Anesthesia/Blood Transfusion Reactions: No Reported Reaction Past Psychological History: No Psychological Hx Reported Smoking Status: Current every day smoker Past Alcohol Use History: None Reported Past Drug Use History: Marijuana - Past Family History Father Family Medical History: Myocardial Infarction ([place]) Brother(s) Family Medical History: Myocardial Infarction ([place]) Medications and Allergies Home Medications Medication Instructions Recorded Confirmed Type oxyCODONE HCL [OxyIR] 5 mg PO QID 07/29/20 10/19/22 History Metoprolol Tartrate [Lopressor] 25 mg PO BID #60 tab 10/05/20 10/19/22 Rx Rivaroxaban [Xarelto] 20 mg PO DAILY 10/19/22 10/19/22 History Allergies Allergy/AdvReac Type Severity Reaction Status Date / Time No Known Allergies Allergy Verified 10/19/22 20:32 Physical Exam Vitals: Vital Signs Temp Pulse Pulse Resp BP BP Pulse Ox 10/20/22 07:10 97.9 F 64 16 98/60 98 10/20/22 00:58 98.4 F 72 17 108/66 97 10/19/22 21:49 98 F 75 18 112/63 100 10/19/22 20:09 86 18 121/73 97 10/19/22 19:40 99.9 F H 10/19/22 18:50 101.1 F H 97 18 121/73 98 10/19/22 17:22 103.5 F H 10/19/22 17:07 22 10/19/22 17:01 98.1 F 121 H 22 109/72 94 L 10/19/22 17:00 99 Intake and Output 10/19/22 10/20/22 10/20/22 22:59 06:59 14:59 Other: # Voids 1 Weight 39.5 kg GENERAL DESCRIPTION: Middle-aged male lying in bed, no distress. No tachypnea or accessory muscle of respiration use. HEENT: Shows Pallor , no scleral icterus. Oral mucous membrane is dry. Did have poor dental hygiene NECK: Trachea central, no thyromegaly. Patient did have a palpable mass to the posterior neck area questionably fibroma/lipoma. No fluctuation or redness LUNGS: Unlabored breathing. Clear to auscultation anteriorly. No wheeze or crackle. HEART: S1, S2, regular rate and rhythm. No loud murmur ABDOMEN: Soft, no tenderness , guarding or rigidity, no organomegaly EXTREMITIES: No edema of feet. SKIN: No rash, no masses palpable. NEUROLOGICAL: The patient is awake, alert, oriented x3, mood and affect normal. Results CBC & Chem 7: 10/21/22 06:59 10/21/22 06:59 Labs: Abnormal Lab Results - Last 24 Hours (Table) 10/19/22 10/19/22 10/19/22 Range/Units 17:46 17:46 17:46 WBC 12.2 H (3.8-10.6) k/uL Neutrophils # 10.8 H (1.3-7.7) k/uL Lymphocytes # 0.9 L (1.0-4.8) k/uL PT 12.2 H (9.0-12.0) sec INR 1.2 H (<1.2) Sodium (137-145) mmol/L Creatinine (0.66-1.25) mg/dL Glucose (74-99) mg/dL Plasma Lactic Acid Gil (0.7-2.0) mmol/L Urine Ketones Trace H (Negative) 10/19/22 10/19/22 Range/Units 17:46 17:46 WBC (3.8-10.6) k/uL Neutrophils # (1.3-7.7) k/uL Lymphocytes # (1.0-4.8) k/uL PT (9.0-12.0) sec INR (<1.2) Sodium 135 L (137-145) mmol/L Creatinine 0.56 L (0.66-1.25) mg/dL Glucose 130 H (74-99) mg/dL Plasma Lactic Acid Gil 2.2 H* (0.7-2.0) mmol/L Urine Ketones (Negative) Assessment and Plan (1) SIRS (systemic inflammatory response syndrome) Status: Acute Code(s): R65.10 - SIRS OF NON-INFECTIOUS ORIGIN W/O ACUTE ORGAN DYSFUNCTION SNOMED Code(s): 984929888 Plan: 1patient is in the hospital. A little shortness of breath he also have a cough patient did have a fever and elevated white count possible pulmonary source, patient abdominal was soft on clinical examination no evidence of encephalitis or joint swelling the patient did have a rounded palpable mass in the posterior neck area however is not tender to touch. No induration or saturation clinically doubt abscess and possible fibroma/lipoma 2we will obtain a CRP and a pro-calcitonin and sputum culture if possible 3patient is a low risk factor for MRSA and we'll discontinue vancomycin to decrease the risk of nephrotoxicity 4start the patient on Unasyn 3 g every 6 hours while waiting for the culture fi nalized and workup to be completed We will follow on clinical condition and cultures to further adjust medication if needed Thank you for this consultation will follow this patient with you Time with Patient: Greater than 30
[2022-10-20] MEDS: AMPICILLIN-SULBACTAM 3 GM in SODIUM CHLORIDE 0.9% 100 ML IVPB SCH (17:10)
[2022-10-21] MEDS: AMPICILLIN-SULBACTAM 3 GM in SODIUM CHLORIDE 0.9% 100 ML IVPB SCH ×4 (00:07→18:13)
[2022-10-21] MEDS ORDERED: VANCOMYCIN TROUGH DUE 1 EACH MISC MISCELLANE ONE (04:00)
[2022-10-21] MEDS: SODIUM CHLORIDE 0.9% 1,000 ML IV SCH ×3 (07:12→18:14)
[2022-10-21 07:45] LABS: ALT 17 U/L (4-49); AST 25 U/L (17-59); African American GFR (CKD) >90 (>60 ml/min/1.73 sqM); Albumin 2.6 g/dL (3.5-5.0); Alkaline Phosphatase 59 U/L (38-126); Anion Gap 0 mmol/L; Blood Urea Nitrogen 7 mg/dL (9-20); Calcium 7.4 mg/dL (8.4-10.2); Carbon Dioxide 30 mmol/L (22-30); Chloride 106 mmol/L (98-107); Globulin 2.6 g/dL; Glucose 89 mg/dL (74-99); Non-African American GFR(CKD) >90 (>60 ml/min/1.73 sqM); Potassium 3.8 mmol/L (3.5-5.1); Sodium 136 mmol/L (137-145); Total Bilirubin 0.4 mg/dL (0.2-1.3); Total Protein 5.2 g/dL (6.3-8.2)
[2022-10-21] MEDS: RIVAROXABAN 20 MG TAB PO SCH (07:54)
[2022-10-21] MEDS: METOPROLOL TARTRATE 25 MG TAB PO SCH (07:54)
[2022-10-21 08:03] LABS: C Reactive Protein 15.6 mg/dL (<1.0)
[2022-10-21 11:27] LABS: Basophils # (A) 0.04 X 10*3/uL (0.00-0.10); Basophils % (A) 0.3 %; Eosinophils # (A) 0.06 X 10*3/uL (0.04-0.35); Eosinophils % (A) 0.4 %; HCT 33.8 % (39.6-50.0); HGB 10.7 g/dL (13.0-17.0); Immature Grans, Automated 0.3 %; Lymphocytes # (A) 1.72 X 10*3/uL (0.90-5.00); MCH 29.2 pg (27.0-32.0); MCHC 31.7 g/dL (32.0-37.0); MCV 92.3 fL (80.0-97.0); Mean Platelet Volume 10.9 fL (9.5-12.2); Monocytes # (A) 1.02 X 10*3/uL (0.20-1.00); Monocytes % (A) 7.1 %; NRBC Per 100 WBC 0 /100 WBCS (0.0-0.0); Neutrophils # (A) 11.46 X 10*3/uL (1.80-7.70); Neutrophils % (A) 79.9 %; Platelet Count 168 X 10*3/uL (140-440); RBC 3.66 X 10*6/uL (4.40-5.60); RDW 14.8 % (11.5-14.5); WBC 14.35 X 10*3/uL (4.50-10.00)
[2022-10-21 12:27] LABS: Erythrocyte Sedimentation Rate 28 mm/Hr (0-20)
--- NOTE | 2022-10-21 13:00 | P.PN ---
Subjective Progress Note Date: 10/21/22 Hospital Course: 62-year-old male with history of atrial fibrillation on anticoagulation, chronic back and neck pain on chronic opiate therapy presenting with generalized weakness, fatigue, fevers and chills. He also has failure to thrive. Patient was initially tachycardic and febrile. Laboratory workup significant for WBC of 12.2, neutrophilic predominant. Lactic acid of 2.2, normalized to 1 after IV fluids, negative UA, negative respiratory viral panel. CT chest, abdomen and pelvis showed multifocal pneumonia currently on IV Unasyn, ID following. Subjective: Patient seen and examined at bedside. No acute events overnight. He denies any chest pain, shortness of breath, abdominal pain, diarrhea, constipation, or urinary complaints. Pertinent positives and negatives as discussed above, a complete review of systems was performed and all other systems are negative. Vitals Signs Reviewed. General: nontoxic, no distress, appears older than stated age, cachectic Derm: warm, dry Head: atraumatic, normocephalic, symmetric, posterior well-circumscribed mass Eyes: EOMI, no lid lag, anicteric sclera Mouth: no lip lesion, mucus membranes moist, poor dentition with multiple dental caries Cardiovascular: S1S2 reg, no murmur Lungs: CTA bilateral, no rhonchi, no rales , no accessory muscle use Abdominal: soft, nontender to palpation, no guarding, no appreciable org anomegaly Ext: no gross muscle atrophy, no edema, no contractures Neuro: CN II-XI grossly intact, no focal neuro deficits Psych: Alert, oriented, appropriate affect Assessment and Plan: Sepsis secondary to multifocal pneumonia, likely bacterial Leukocytosis Lactic acidosis Posterior neck mass -CT Thora showed scattered patchy opacities within the lungs bilaterally which may represent pneumonia, severe emphysema -Posterior neck mass ultrasound showed hypoechoic lesion with no blood flow, has been chronic -TSH low, normal free T4, repeat TSH and 46 weeks -Blood cultures, sputum cultures pending -ID consulted -IV antibiotics changed to Unasyn Failure to thrive Cachexia - Social work consult - Nutrition consult, on supplements -Likely in the setting of chronic opiate therapy Multiple dental caries -Outpatient follow-up Chronic conditions: Atrial fibrillation - Continue anticoagulation Chronic neck and back pain -On opiates, decreased DVT ppx: On anticoagulation Code status: Full Code Anticipated discharge place: Pending clinical course Anticipated discharge time: Pending clinical course Objective - Vital Signs Vital signs: Vital Signs Temp 97.6 F 10/21/22 07:49 Pulse 72 10/21/22 07:49 Resp 18 10/21/22 07:49 BP 112/60 10/21/22 07:49 Pulse Ox 94 L 10/21/22 09:35 FiO2 Intake & Output 10/20/22 10/21/22 10/21/22 18:59 06:59 18:59 Weight 39.5 kg Other: # Voids 6 2 - Labs CBC & Chem 7: 10/21/22 06:59 10/21/22 06:59 Labs: Abnormal Lab Results - Last 24 Hours (Table) 10/21/22 10/21/22 10/21/22 Range/Units 06:59 06:59 06:59 WBC 14.35 H (4.50-10.00) X 10*3/uL RBC 3.66 L (4.40-5.60) X 10*6/uL Hgb 10.7 L (13.0-17.0) g/dL Hct 33.8 L (39.6-50.0) % MCHC 31.7 L (32.0-37.0) g/dL RDW 14.8 H (11.5-14.5) % Immature Gran # 0.05 H (0.00-0.04) X 10*3/uL Neutrophils # 11.46 H (1.80-7.70) X 10*3/uL Monocytes # 1.02 H (0.20-1.00) X 10*3/uL ESR 28 H (0-20) mm/Hr Sodium 136 L (137-145) mmol/L BUN 7 L (9-20) mg/dL Creatinine 0.41 L (0.66-1.25) mg/dL Calcium 7.4 L (8.4-10.2) mg/dL C-Reactive Protein 15.6 H (<1.0) mg/dL Total Protein 5.2 L (6.3-8.2) g/dL Albumin 2.6 L (3.5-5.0) g/dL Procalcitonin 2.12 H (0.02-0.09) ng/mL Microbiology - Last 24 Hours (Table) 10/19/22 17:46 Blood Culture - Preliminary Blood No Growth after 24 hours
[2022-10-21 13:38] VITALS: BP 101/63; PULSE 135; RESP 20; TEMP 98
[2022-10-21] MEDS ORDERED: METOPROLOL TARTRATE 25 MG TAB PO STA (13:42)
--- NOTE | 2022-10-21 17:37 | P.PN ---
Subjective Progress Note Date: 10/21/22 Principal diagnosis: Fever Patient is a 61-year-old male with a past medical history significant for atrial fibrillation on xarelto, also history of chronic lower back and neck pain patient was brought into the for evaluation of generalized weakness and increasing shortness of breath, patient also noticed to have a fever and elevated white count, patient did have associated abdominal pelvis didn't show any acute abnormality. On today's evaluation is 10/21/2022, patient denies having any fever or any chills, the patient is currently breathing comfortably on today's visit Denies Any Chest Pain Occasional Cough No Abdominal Pain or Diarrhea Objective - Vital Signs Vital signs: Vital Signs Temp 97.6 F 10/21/22 07:49 Pulse 72 10/21/22 07:49 Resp 18 10/21/22 07:49 BP 112/60 10/21/22 07:49 Pulse Ox 94 L 10/21/22 09:35 FiO2 Intake & Output 10/20/22 10/21/22 10/21/22 18:59 06:59 18:59 Weight 39.5 kg Other: # Voids 6 2 - Exam GENERAL DESCRIPTION: Middle-aged male lying in bed in no distress RESPIRATORY SYSTEM: Unlabored breathing , decreased breath sounds at bases HEART: S1 S2 regular rate and rhythm , ABDOMEN: Soft , no tenderness EXTREMITIES: No edema feet - Labs CBC & Chem 7: 10/21/22 06:59 10/21/22 06:59 Labs: Abnormal Lab Results - Last 24 Hours (Table) 10/20/22 10/21/22 Range/Units 05:19 06:59 Sodium 136 L (137-145) mmol/L BUN 7 L (9-20) mg/dL Creatinine 0.41 L (0.66-1.25) mg/dL Calcium 7.4 L (8.4-10.2) mg/dL C-Reactive Protein 15.6 H (<1.0) mg/dL Total Protein 5.2 L (6.3-8.2) g/dL Albumin 2.6 L (3.5-5.0) g/dL TSH 0.423 L (0.465-4.680) mIU/L Microbiology - Last 24 Hours (Table) 10/19/22 17:46 Blood Culture - Preliminary Blood No Growth after 24 hours Assessment and Plan (1) SIRS (systemic inflammatory response syndrome) Current Visit: Yes Status: Acute Code(s): R65.10 - SIRS OF NON-INFECTIOUS ORIGIN W/O ACUTE ORGAN DYSFUNCTION SNOMED Code(s): 824067573 Plan: 1patient is in the hospital. A little shortness of breath he also have a cough patient did have a fever and elevated white count possible pulmonary source, patient abdominal was soft on clinical examination no evidence of encephalitis or joint swelling the patient did have a rounded palpable mass in the posterior neck area however is not tender to touch. No induration or saturation clini michael doubt abscess and possible fibroma/lipoma 2 CRP and a pro-calcitonin are currently pending and sputum culture not collected 3patient to continue with Unasyn 3 g every 6 hours while waiting for the culture finalized and workup to be completed Time with Patient: Less than 30
--- NOTE | 2022-10-22 07:35 | P.DS ---
Providers Date of admission: 10/19/22 20:10 Expected date of discharge: 10/22/22 Attending physician: Laurent Liu MD Consults: 10/19/22 20:10 Consult Physician Routine Consulting Provider: Moises Solis Consult Reason/Comments: sirs, sepsis Do you want consulting provider notified?: Yes Primary care physician: Stated None Hospital Course: Patient left AMA on 10/21/22 evening without being seen. Please see progress note from 10/21/22 for physical exam, assessment and plan. Patient Condition at Discharge: Undetermined Plan - Discharge Summary New Discharge Prescriptions: No Action oxyCODONE HCL [OxyIR] 5 mg PO QID Metoprolol Tartrate [Lopressor] 25 mg PO BID #60 tab Rivaroxaban [Xarelto] 20 mg PO DAILY Discharge Medication List oxyCODONE HCL [OxyIR] 5 mg PO QID 07/29/20 [History] Metoprolol Tartrate [Lopressor] 25 mg PO BID #60 tab 10/05/20 [Rx] Rivaroxaban [Xarelto] 20 mg PO DAILY 10/19/22 [History] Follow up Appointment(s)/Referral(s): None,Stated [Primary Care Provider] - 1-2 days Discharge/Stand Alone Forms: Community Resources Discharge Disposition: Left Against Medical Advice
== END 2022-10-21 18:36 | disposition left against medical advice (07) | DRG 871 ==
LOC: EC 16:58 → 4SSUR 20:10
PROVIDERS: ADMIT Internal Medicine; ATTEND Internal Medicine
DX: A41.9 Sepsis, unspecified organism (principal); J15.9 Unspecified bacterial pneumonia; E87.20 Acidosis, unspecified; Z68.1 Body mass index [BMI] 19.9 or less, adult; R64 Cachexia; J44.0 Chronic obstructive pulmonary disease with (acute) lower respiratory infection; I48.20 Chronic atrial fibrillation, unspecified; R22.1 Localized swelling, mass and lump, neck; R62.7 Adult failure to thrive; K02.9 Dental caries, unspecified; Z79.01 Long term (current) use of anticoagulants; G89.29 Other chronic pain; M54.9 Dorsalgia, unspecified; F17.210 Nicotine dependence, cigarettes, uncomplicated; Z79.891 Long term (current) use of opiate analgesic; Z79.899 Other long term (current) drug therapy; Z82.49 Family history of ischemic heart disease and other diseases of the circulatory system; Z71.3 Dietary counseling and surveillance; Z20.822 Contact with and (suspected) exposure to COVID-19; Z60.2 Problems related to living alone
CPT/HCPCS: 36415; 71046; 71260; 74177; 76536; 80053; 81003; 82565; 83605; 83735; 84145; 84439; 84443; 84484; 85025; 85610; 85652; 85730; 86140; 87040; 87636; 93005; 94760; 96361; 96365; 96366; 99285

== ENCOUNTER → 2023-03-06 | Outpatient (CLI) | payer MEDICARE ==
--- NOTE | 2023-03-06 14:45 | XR ---
EXAM TYPE: LUMBAR SPINE X RAY SERIES COMPARISON: NONE HISTORY: Pain TECHNIQUE: 4 views are submitted. FINDINGS: Alignment is anatomic. The pedicles are intact. The transverse processes are intact. There is diff use osteopenia with flowing anterior osteophytes. Disc spaces appear fairly well preserved with mild to moderate degenerative disc disease thoracolumbar junction. No spondylolisthesis. IMPRESSION: 1. Diffuse osteopenia correlate for diffuse idiopathic skeletal hyperostosis versus ankylosing spondy litis. 2. Moderate degenerative disc disease thoracolumbar junction.
== END | disposition home or self-care (01) ==
LOC: RADXRMAIN 13:56
PROVIDERS: ATTEND Physical Medicine & Rehabilitation
DX: M51.35 Other intervertebral disc degeneration, thoracolumbar region (principal)
CPT/HCPCS: 72110

== ENCOUNTER 2023-09-04 12:33 | Emergency (ER) | payer MEDICARE ==
--- NOTE | 2023-09-04 12:51 | ED ---
General Adult HPI - General Source: patient, RN notes reviewed Mode of arrival: ambulatory Limitations: no limitations <Aung Castillo - Last Filed: 09/04/23 12:50> <Nate Peace - Last Filed: 09/04/23 13:30> - General Chief complaint: Recheck/Abnormal Lab/Rx Stated complaint: Med Refill Time Seen by Provider: 09/04/23 12:50 - History of Present Illness Initial comments: 62-year-old male presents emergency Department with chief complaint of needing medication refill. Patient states that he takes OxyContin. (Aung Castillo) This is a 62-year-old male who presents emergency department requesting a refill on his OxyContin. Patient states his doctor no longer will prescribe him bec ause he has retired. Patient admits that the doctor gave him a letter at least 4 months ago to find another doctor. Patient has not yet found another pain doctor or neurologist or primary medical care doctor. Patient states he is taking the pills for chronic back pain. Patient denies any injury patient denies any new symptoms. When I told the patient I was not going to write OxyContin but we can look into possible other solutions he got up and walked out of the room. (Nate Peace) - Related Data Home Medications Medication Instructions Recorded Confirmed oxyCODONE HCL [OxyIR] 5 mg PO QID 07/29/20 10/19/22 Rivaroxaban [Xarelto] 20 mg PO DAILY 10/19/22 10/19/22 Previous Rx's Medication Instructions Recorded Metoprolol Tartrate [Lopressor] 25 mg PO BID #60 tab 10/05/20 Allergies Allergy/AdvReac Type Severity Reaction Status Date / Time No Known Allergies Allergy Verified 10/19/22 20:32 Review of Systems ROS Other: All systems not noted in ROS Statement are negative. <Aung Castillo - Last Filed: 09/04/23 12:50> ROS Other: All systems not noted in ROS Statement are negative. <Nate Peace - Last Filed: 09/04/23 13:30> ROS Statement: Those systems with pertinent positive or pertinent negative responses have been documented in the HPI. Past Medical History Past Medical History: Atrial Fibrillation Additional Past Medical History / Comment(s): chronic back and neck pain History of Any Multi-Drug Resistant Organisms: None Reported Past Surgical History: Orthopedic Surgery Additional Past Surgical History / Comment(s): right hip surgery Past Anesthesia/Blood Transfusion Reactions: No Reported Reaction Past Psychological History: No Psychological Hx Reported Smoking Status: Current every day smoker Past Alcohol Use History: None Reported Past Drug Use History: Marijuana - Past Family History Father Family Medical History: Myocardial Infarction ([place]) Brother(s) Family Medical History: Myocardial Infarction ([place]) <Aung Castillo - Last Filed: 09/04/23 12:50> General Exam Limitations: no limitations <Aung Castillo - Last Filed: 09/04/23 12:50> <Nate Peace - Last Filed: 09/04/23 13:30> - General Exam Comments Initial Comments: Visual Physical Exam Vital signs reviewed General: Well-appearing, nontoxic, no acute distress. Head: Normocephalic, atraumatic Eyes: PERRLA, EOMI ENT: Airway patent Chest: Nonlabored breathing Skin: No visual rash, normal skin tone Neuro: Alert and oriented 3 Musculoskeletal: No gross abnormalities (Aung Castillo) GENERAL Patient is well-developed and well-nourished. Patient is in mild distress. EYES Patient's pupils are equal and round. Extraocular motion is intact SKIN Unremarkable NEURO The patient is alert and oriented 3 PYSCH Patient has normal interpersonal interactions. MUSCULOSKELETAL Patient was able to move all 4 times without problem ambulate without problem and he was never in distress sitting or getting up to walk and while walking. (Nate Peace) Course Vital Signs 09/04/23 12:45 Temperature 98.0 F Pulse Rate 75 Respiratory 18 Rate Blood Pressure 117/68 O2 Sat by Pulse 99 Oximetry Medical Decision Making <Aung Castillo - Last Filed: 09/04/23 12:50> <Nate Peace - Last Filed: 09/04/23 13:30> - Medical Decision Making I completed the quick note portion of this chart signed Aung Castillo PA-C (Aung Castillo) Was pt. sent in by a medical professional or institution ([facility], ADVERTISING CLERK, urgent care, hospital, or senior living...) When possible be specific @ -No Did you speak to anyone other than the patient for history (EMS, parent, family, police, friend...)? What history was obtained from this source @ -No Did you review nursing and triage notes (agree or disagree)? Why? @ -I reviewed and agree with nursing and triage notes Were old charts reviewed (outside hosp., previous admission, EMS record, old EKG, old radiological studies, urgent care reports/EKG's, senior living records)? Report findings @ -No old charts were reviewed Differential Diagnosis (chest pain, altered mental status, abdominal pain women, abdominal pain men, vaginal bleeding, weakness, fever, dyspnea, syncope, headache, dizziness, GI bleed, back pain, seizure, CVA, palpatations, mental health, musculoskeletal)? @ -not applicable EKG interpreted by me (3pts min.). @ -As above X-rays interpreted by me (1pt min.). @ -None done CT interpreted by me (1pt min.). @ -None done U/S interpreted by me (1pt. min.). @ -None done What testing was considered but not performed or refused? (CT, X-rays, U/S, labs)? Why? @ -None What meds were considered but not given or refused? Why? @ -None Did you discuss the management of the patient with other professionals (professionals i.e. , PA, ADVERTISING CLERK, lab, RT, psych nurse, social psychologist, scale operator, teacher, general service officer, top case assembler)? Give summary @ -No Was smoking cessation discussed for >3mins.? @ -No Was critical care preformed (if so, how long)? @ -No Were there social determinants of health that impacted care today? How? (Homelessness, low income, unemployed, alcoholism, drug addiction, transportation, low edu. Level, literacy, decrease access to med. care, residential, rehab)? @ -No Was there de-escalation of care discussed even if they declined (Discuss DNR or withdrawal of care, Hospice)? DNR status @ -No What co-morbidities impacted this encounter? (DM, HTN, Smoking, COPD, CAD, Cancer, CVA, ARF, Chemo, Hep., AIDS, mental health diagnosis, sleep apnea, morbid obesity)? @ -None Was patient admitted / discharged? Hospital course, mention meds given and route, prescriptions, significant lab abnormalities, going to OR and other pert inent info. @ -Patient stated that he went and saw neurologist and they wanted to do injections in his back but he did not want that he wanted his pain medicines refilled so he does not see him anymore. Patient states he has not gotten any other pain doctor to see him and he has not obtained a primary medical care doctor. Patient also denies any new injury or new symptoms. Patient appears in no distress. Patient is insistent that he wants OxyContin and when I told him I will be writing any OxyContin he got up and walked out in no distress Undiagnosed new problem with uncertain prognosis? @ -No Drug Therapy requiring intensive monitoring for toxicity (Heparin, Nitro, Insulin, Cardizem)? @ -No Were any procedures done? @ -No Diagnosis/symptom? @ -Drug seeking behavior Acute, or Chronic, or Acute on Chronic? @ -Chronic Uncomplicated (without systemic symptoms) or Complicated (systemic symptoms)? @ -default Side effects of treatment? @ -No Exacerbation, Progression, or Severe Exacerbation? @ -No Poses a threat to life or bodily function? How? (Chest pain, [place], [place], pneumonia, PE, COPD, DKA, ARF, appy, cholecystitis, CVA, Diverticulitis, Homicidal, Suicidal, threat to staff... and all critical care pts) @ -No (Nate Peace) Disposition <Aung Castillo - Last Filed: 09/04/23 12:50> Time of Disposition: 13:30 <Nate Peace - Last Filed: 09/04/23 13:30> Clinical Impression: Drug-seeking behavior Disposition: LEFT AGAINST MEDICAL ADVICE Referrals: None,Stated [Primary Care Provider] - 1-2 days
[2023-09-04 13:11] VITALS: BP 117/68; PULSE 75; RESP 18; TEMP 98
== END 2023-09-04 13:31 | disposition left against medical advice (07) ==
LOC: EC 12:33
DX: Z65.8 Other specified problems related to psychosocial circumstances (principal); I48.91 Unspecified atrial fibrillation; F12.90 Cannabis use, unspecified, uncomplicated; F17.200 Nicotine dependence, unspecified, uncomplicated; Z79.01 Long term (current) use of anticoagulants
CPT/HCPCS: 99282

== ENCOUNTER 2024-05-04 17:00 | Inpatient (IN) | payer MEDICARE ==
[~2024-05-04 17:00] MED LIST: DILTIAZEM 125 MG/25 ML VIAL IV ONE; SODIUM CHLORIDE 0.9% 100 ML BAG ONE; SODIUM CHLORIDE 0.9% 500 ML BAG ONE; oxyCODONE-APAP 10-325MG 1 EACH TAB ONE
[2024-05-04] MEDS ORDERED: NICOTINE 21MG/24HR PATCH TRANSDERM ONE (20:24)
[2024-05-04] MEDS ORDERED: HEPARIN SOD,PORK IN 0.45% NACL 250 ML IV ONE (22:13)
[2024-05-05] MEDS ORDERED: HYDROcodone/APAP 5-325MG 1 EACH TAB ONE ×2 (06:29→20:04)
[2024-05-05] MEDS ORDERED: AMOXIC-POT CLAV 875-125MG 1 EACH TAB ONE (09:55)
[2024-05-05] MEDS ORDERED: ASPIRIN 81 MG ONE (09:57)
[2024-05-05] MEDS ORDERED: METOPROLOL TARTRATE 25 MG TAB ONE (09:58)
[2024-05-05] MEDS ORDERED: ENOXAPARIN 60 MG/0.6 ML SYRINGE SQ ONE (10:00)
[2024-05-05] MEDS ORDERED: oxyCODONE-APAP 5-325MG 1 EACH TAB ONE ×2 (10:18→15:44)
[2024-05-06] MEDS ORDERED: HYDROcodone/APAP 5-325MG 1 EACH TAB ONE ×2 (06:20→10:23)
[2024-05-06] MEDS ORDERED: REGADENOSON 0.4 MG/5 ML SYRINGE IV ONE (08:00)
[2024-05-06] MEDS ORDERED: ENOXAPARIN 60 MG/0.6 ML SYRINGE SQ ONE (09:00)
[2024-05-06] MEDS ORDERED: ASPIRIN 81 MG ONE (10:23)
[2024-05-06] MEDS ORDERED: METOPROLOL SUCCINATE (ER) 25 MG TAB.ER.24H PO ONE (10:23)
--- NOTE | 2024-06-11 11:44 | NM ---
Patient Nelson Willis ID [id number] Order # EXAMINATION TYPE: NM stress cardiolite complete DATE OF EXAM: 05/06/2024 COMPARISON: NONE HISTORY: Chest pain TECHNIQUE: After the intravenous administration of 10.1 mCi Tc 99m Sestamibi - Cardiolite resting SP ECT images acquired. At peak stress 25.87 mCi Tc 99m Sestamibi was injected. FINDINGS: No fixed defects are evident No reversible stress defects on Spect images Wall motion is normal Ejection fraction is calculated to be 63 %. IMPRESSION: 1. No stress-induced ischemic changes.
== END 2024-05-06 15:19 | disposition left against medical advice (07) | DRG 310 ==
LOC: 3SCARD 17:00
PROVIDERS: ADMIT Family Medicine; ATTEND Family Medicine
DX: I48.0 Paroxysmal atrial fibrillation (principal); Z11.52 Encounter for screening for COVID-19; F17.210 Nicotine dependence, cigarettes, uncomplicated; R63.4 Abnormal weight loss; Z79.899 Other long term (current) drug therapy
CPT/HCPCS: 78452; 93005; 93017; 93306; 96374; 99291

== ENCOUNTER 2024-09-02 08:39 | Inpatient (IN) | payer MEDICARE ==
[2024-09-02 09:13] LABS: Basophils # (A) 0.1 k/uL (0-0.2); Basophils % (A) 1 %; Eosinophils # (A) 0.1 k/uL (0-0.7); Eosinophils % (A) 1 %; HCT 43.8 % (39.0-53.0); HGB 13.9 gm/dL (13.0-17.5); Hypochromasia Slight; Lymphocytes # (A) 1.2 k/uL (1.0-4.8); Lymphocytes % (A) 15 %; MCH 28.4 pg (25.0-35.0); MCHC 31.8 g/dL (31.0-37.0); MCV 89.5 fL (80.0-100.0); Mean Platelet Volume 7.1; Monocytes # (A) 0.5 k/uL (0-1.0); Monocytes % (A) 6 %; Neutrophils # (A) 5.9 k/uL (1.3-7.7); Neutrophils % (A) 76 %; Platelet Count 482 k/uL (150-450); RBC 4.89 m/uL (4.30-5.90); RDW 13.7 % (11.5-15.5); WBC 7.7 k/uL (3.8-10.6)
[2024-09-02 09:23] LABS: INR 0.9 (<1.2); Partial Thromboplastin Time 26.2 sec (22.0-30.0); Prothrombin Time 10.1 sec (10.0-12.5)
[2024-09-02 09:26] LABS: ALT 22 U/L (4-49); AST 29 U/L (17-59); African American GFR (CKD) >90 (>60 ml/min/1.73 sqM); Alkaline Phosphatase 146 U/L (38-126); Anion Gap 3 mmol/L; Blood Urea Nitrogen 19 mg/dL (9-20); Calcium 9.8 mg/dL (8.4-10.2); Carbon Dioxide 37 mmol/L (22-30); Chloride 94 mmol/L (98-107); Glucose 119 mg/dL (74-99); Magnesium 2.1 mg/dL (1.6-2.3); Non-African American GFR(CKD) >90 (>60 ml/min/1.73 sqM); Potassium 5.2 mmol/L (3.5-5.1); Sodium 134 mmol/L (137-145); Total Bilirubin 0.5 mg/dL (0.2-1.3); Total Protein 8.2 g/dL (6.3-8.2)
--- NOTE | 2024-09-02 09:42 | ED ---
General Adult HPI - General Chief complaint: Arrhythmia/Palpitations Stated complaint: AFIB Source: patient Mode of arrival: ambulatory Limitations: no limitations - History of Present Illness Initial comments: 63-year-old male with past medical history of PE, A-fib, nicotine abuse who presents emergency department reporting shortness of breath, chest pain. His symptoms started this morning when he awoke. [place] like he could not catch his breath. He was having pressure in his chest. He does have a history of A-fib. He also has a history of a PE. He denies being on any anticoagulation. He has no history of coronary disease. He did take his medications this morning for rate control. He does admit that he has had an upper respiratory infection for the past 3 weeks that he just cannot get rid of. States that he has been coughing with nasal congestion and sore throat. He admits to intermittent fevers. Patient has not seen his primary care in regards to the symptoms yet. No abdominal pain. No numbness, tingling or weakness in his extremities. No other alleviating, precipitating or modifying factors - Related Data Home Medications Medication Instructions Recorded Confirmed oxyCODONE-APAP 5-325MG [Percocet 1 tab PO QID 09/02/24 09/02/24 5-325 mg] Previous Rx's Medication Instructions Recorded Metoprolol Tartrate [Lopressor] 25 mg PO BID #60 tab 10/05/20 Allergies Allergy/AdvReac Type Severity Reaction Status Date / Time No Known Allergies Allergy Verified 09/02/24 12:00 Review of Systems ROS Statement: Those systems with pertinent positive or pertinent negative responses have been documented in the HPI. ROS Other: All systems not noted in ROS Statement are negative. Past Medical History Past Medical History: Atrial Fibrillation Additional Past Medical History / Comment(s): chronic back and neck pain History of Any Multi-Drug Resistant Organisms: None Reported Past Surgical History: Orthopedic Surgery Additional Past Surgical History / Comment(s): right hip surgery Past Anesthesia/Blood Transfusion Reactions: No Reported Reaction Past Psychological History: No Psychological Hx Reported Smoking Status: Current every day smoker Past Alcohol Use History: None Reported Past Drug Use History: Marijuana - Past Family History Father Family Medical History: Myocardial Infarction ([place]) Brother(s) Family Medical History: Myocardial Infarction ([place]) General Exam Limitations: no limitations General appearance: alert, in no apparent distress Head exam: Present: atraumatic, normocephalic, normal inspection Eye exam: Present: normal appearance, PERRL, EOMI. Absent: scleral icterus, conjunctival injection, periorbital swelling ENT exam: Present: normal exam, mucous membranes moist Neck exam: Present: normal inspection. Absent: tenderness, meningismus, lymphadenopathy Respiratory exam: Present: normal lung sounds bilaterally. Absent: respiratory distress, wheezes, rales, rhonchi, stridor Cardiovascular Exam: Present: tachycardia, irregular rhythm, normal heart sound s. Absent: systolic murmur, diastolic murmur, rubs, gallop, clicks GI/Abdominal exam: Present: soft, normal bowel sounds. Absent: distended, tenderness, guarding, rebound, rigid Extremities exam: Present: normal inspection, full ROM, normal capillary refill. Absent: tenderness, pedal edema, joint swelling, calf tenderness Back exam: Present: normal inspection Neurological exam: Present: alert, oriented X3, CN II-XII intact Psychiatric exam: Present: normal affect, normal mood Skin exam: Present: warm, dry, intact, normal color. Absent: rash Course Vital Signs 09/02/24 09/02/24 09/02/24 08:43 08:45 09:53 Temperature 97.7 F Pulse Rate 65 128 H Pulse Rate [ 113 H [employer] ] Respiratory 18 18 Rate Blood Pressure 108/91 105/40 O2 Sat by Pulse 99 99 Oximetry 09/02/24 09/02/24 09/02/24 11:36 11:40 12:00 Temperature Pulse Rate 96 101 H 93 Pulse Rate [ [employer] ] Respiratory 18 18 18 Rate Blood Pressure 103/49 103/49 103/52 O2 Sat by Pulse 98 97 98 Oximetry 09/02/24 09/02/24 09/02/24 12:30 15:00 15:22 Temperature Pulse Rate 90 88 78 Pulse Rate [ [employer] ] Respiratory 16 18 18 Rate Blood Pressure 108/67 106/65 96/63 O2 Sat by Pulse 99 100 Oximetry 09/02/24 09/02/24 09/02/24 16:00 17:00 18:00 Temperature Pulse Rate 88 95 63 Pulse Rate [ [employer] ] Respiratory 18 18 18 Rate Blood Pressure 105/62 98/52 86/58 O2 Sat by Pulse 99 99 99 Oximetry 09/02/24 09/02/24 09/02/24 18:53 19:00 21:00 Temperature Pulse Rate 60 75 71 Pulse Rate [ [employer] ] Respiratory 18 18 18 Rate Blood Pressure 87/61 87/61 112/61 O2 Sat by Pulse 99 97 100 Oximetry 09/02/24 09/03/24 09/03/24 22:00 00:30 02:00 Temperature 98.3 F Pulse Rate 66 61 66 Pulse Rate [ [employer] ] Respiratory 18 18 18 Rate Blood Pressure 103/70 102/58 102/66 O2 Sat by Pulse 100 100 100 Oximetry 09/03/24 09/03/24 09/03/24 05:15 07:35 08:04 Temperature 97.8 F Pulse Rate 76 Pulse Rate [ 82 [employer] ] Respiratory 18 Rate Blood Pressure 116/69 O2 Sat by Pulse 96 98 Oximetry 09/03/24 09/03/24 09/03/24 08:54 12:18 12:59 Temperature 97.5 F L Pulse Rate 64 71 81 Pulse Rate [ [employer] ] Respiratory 16 18 16 Rate Blood Pressure 103/57 129/76 107/66 O2 Sat by Pulse 96 95 97 Oximetry Medical Decision Making - Medical Decision Making Was pt. sent in by a medical professional or institution (, PA, TEMPLE MEAT CUTTER, urgent care, hospital, or skilled nursing...) When possible be specific @ -No Did you speak to anyone other than the patient for history (EMS, parent, family, police, friend...)? What history was obtained from this source @ -Spoke with EMS for history Did you review nursing and triage notes (agree or disagree)? Why? @ -I reviewed and agree with nursing and triage notes Were old charts reviewed (outside hosp., previous admission, EMS record, old EKG, old radiological studies, urgent care reports/EKG's, skilled nursing records)? Report findings @ -No old charts were reviewed Differential Diagnosis (chest pain, altered mental status, abdominal pain women, abdominal pain men, vaginal bleeding, weakness, fever, dyspnea, syncope, headache, dizziness, GI bleed, back pain, seizure, CVA, palpatations, mental health, musculoskeletal)? @ -Differential Chest Pain: Stable Angina, Unstable Angina, STEMI, NSTEMI Aortic Dissection, Pneumothorax, Musculoskeletal, Esophageal Spasm GERD, Cholecystitis, Pancreatitis, Zoster, this is not meant to be an all-inclusive list. EKG interpreted by me (3pts min.). @ -Yes and demonstrates A-fib with a rate of 133. QRS 92. QTc of 370. No acute ST segment elevation. Incomplete right bundle branch block X-rays interpreted by me (1pt min.). @ -None done CT interpreted by me (1pt min.). @ -Yes and demonstrates no acute process U/S interpreted by me (1pt. min.). @ -None done What testing was considered but not performed or refused? (CT, X-rays, U/S, labs)? Why? @ -None What meds were considered but not given or refused? Why? @ -None Did you discuss the management of the patient with other professionals (professionals i.e. , PA, TEMPLE MEAT CUTTER, lab, RT, psych nurse, social services analyst, liner man, teacher, chief juvenile probation officer, case sealer)? Give summary @ -Spoke with Dr. Alatorre who will admit the patient Was smoking cessation discussed for >3mins.? @ -No Was critical care preformed (if so, how long)? @ -Yes, 35 minutes for management of rapid A-fib Were there social determinants of health that impacted care today? How? (Homelessness, low income, unemployed, alcoholism, drug addiction, transportation, low edu. Level, literacy, decrease access to med. care, intermediate, rehab)? @ -No Was there de-escalation of care discussed even if they declined (Discuss DNR or withdrawal of care, Hospice)? DNR status @ -No What co-morbidities impacted this encounter? (DM, HTN, Smoking, COPD, CAD, Cancer, CVA, ARF, Chemo, Hep., AIDS, mental health diagnosis, sleep apnea, morbid obesity)? @ -A-fib Was patient admitted / discharged? Hospital course, mention meds given and route, prescriptions, significant lab abnormalities, going to OR and other pe rtinent info. @ -Upon arrival patient seen and evaluated in room 1. Thorough history and physical exam was performed. IV access was established. Laboratory studies were conducted. CT of the chest was performed to evaluate for PE. Results are discussed with patient. Cardizem ordered for rapid A-fib. Antibiotics are ordered for his pneumonia recommended admission for which the patient was ag reeable. Spoke with Dr. Alatorre for the admission Undiagnosed new problem with uncertain prognosis? @ -No Drug Therapy requiring intensive monitoring for toxicity (Heparin, Nitro, Insulin, Cardizem)? @ -Cardizem Were any procedures done? @ -No Diagnosis/symptom? @ -Acute chest pain, A-fib with RVR, acute pneumonia Acute, or Chronic, or Acute on Chronic? @ -Acute on chronic Uncomplicated (without systemic symptoms) or Complicated (systemic symptoms)? @ -Complicated Side effects of treatment? @ -No Exacerbation, Progression, or Severe Exacerbation? @ -No Poses a threat to life or bodily function? How? (Chest pain, [place], [place], pneumonia, PE, COPD, DKA, ARF, appy, cholecystitis, CVA, Diverticulitis, Homicidal, Suicidal, threat to staff... and all critical care pts) @ -No - Lab Data Result diagrams: 09/02/24 09:08 09/02/24 09:08 Lab Results 09/02/24 09/02/24 09/02/24 Range/Units 09:08 09:08 09:08 WBC 7.7 (3.8-10.6) k/uL RBC 4.89 (4.30-5.90) m/uL Hgb 13.9 (13.0-17.5) gm/dL Hct 43.8 (39.0-53.0) % MCV 89.5 (80.0-100.0) fL MCH 28.4 (25.0-35.0) pg MCHC 31.8 (31.0-37.0) g/dL RDW 13.7 (11.5-15.5) % Plt Count 482 H (150-450) k/uL MPV 7.1 Neutrophils % 76 % Lymphocytes % 15 % Monocytes % 6 % Eosinophils % 1 % Basophils % 1 % Neutrophils # 5.9 (1.3-7.7) k/uL Lymphocytes # 1.2 (1.0-4.8) k/uL Monocytes # 0.5 (0-1.0) k/uL Eosinophils # 0.1 (0-0.7) k/uL Basophils # 0.1 (0-0.2) k/uL Hypochromasia Slight PT 10.1 (10.0-12.5) sec INR 0.9 (<1.2) APTT 26.2 (22.0-30.0) sec Sodium 134 L (137-145) mmol/L Potassium 5.2 H (3.5-5.1) mmol/L Chloride 94 L (98-107) mmol/L Carbon Dioxide 37 H (22-30) mmol/L Anion Gap 3 mmol/L BUN 19 (9-20) mg/dL Creatinine 0.66 (0.66-1.25) mg/dL Est GFR (CKD-EPI)AfAm >90 (>60 ml/min/1.73 sqM) Est GFR (CKD-EPI)NonAf >90 (>60 ml/min/1.73 sqM) Glucose 119 H (74-99) mg/dL Calcium 9.8 (8.4-10.2) mg/dL Magnesium 2.1 (1.6-2.3) mg/dL Total Bilirubin 0.5 (0.2-1.3) mg/dL AST 29 (17-59) U/L ALT 22 (4-49) U/L Alkaline Phosphatase 146 H (38-126) U/L Troponin I (0.000-0.034) ng/mL Total Protein 8.2 (6.3-8.2) g/dL Albumin 4.0 (3.5-5.0) g/dL TSH 1.450 (0.465-4.680) mIU/L 09/02/24 Range/Units 09:08 WBC (3.8-10.6) k/uL RBC (4.30-5.90) m/uL Hgb (13.0-17.5) gm/dL Hct (39.0-53.0) % MCV (80.0-100.0) fL MCH (25.0-35.0) pg MCHC (31.0-37.0) g/dL RDW (11.5-15.5) % Plt Count (150-450) k/uL MPV Neutrophils % % Lymphocytes % % Monocytes % % Eosinophils % % Basophils % % Neutrophils # (1.3-7.7) k/uL Lymphocytes # (1.0-4.8) k/uL Monocytes # (0-1.0) k/uL Eosinophils # (0-0.7) k/uL Basophils # (0-0.2) k/uL Hypochromasia PT (10.0-12.5) sec INR (<1.2) APTT (22.0-30.0) sec Sodium (137-145) mmol/L Potassium (3.5-5.1) mmol/L Chloride (98-107) mmol/L Carbon Dioxide (22-30) mmol/L Anion Gap mmol/L BUN (9-20) mg/dL Creatinine (0.66-1.25) mg/dL Est GFR (CKD-EPI)AfAm (>60 ml/min/1.73 sqM) Est GFR (CKD-EPI)NonAf (>60 ml/min/1.73 sqM) Glucose (74-99) mg/dL Calcium (8.4-10.2) mg/dL Magnesium (1.6-2.3) mg/dL Total Bilirubin (0.2-1.3) mg/dL AST (17-59) U/L ALT (4-49) U/L Alkaline Phosphatase (38-126) U/L Troponin I <0.012 (0.000-0.034) ng/mL Total Protein (6.3-8.2) g/dL Albumin (3.5-5.0) g/dL TSH (0.465-4.680) mIU/L Disposition Clinical Impression: Atrial fibrillation with RVR, CAP (community acquired pneumonia) Disposition: ADMITTED IP TO THIS [facility] Condition: Stable Is patient prescribed a controlled substance at d/c from ED?: No Time of Disposition: 11:19 Decision to Admit Reason: Admit from EC Decision Date: 09/02/24 Decision Time: 11:19
--- NOTE | 2024-09-02 10:06 | CT ---
EXAMINATION TYPE: CT chest angio for PE DATE OF EXAM: 09/02/2024 9:40 AM COMPARISON: 10/20/2022 CLINICAL INDICATION: Male, 63 years old with history of chest pain, hx pe, no anticoagulation, SOB TECHNIQUE: CT of the chest is performed on a spiral scan at 2 mm thick sections. Study is performed with intravenous contrast timed for evaluation for pulmonary embolism. This will limit additional po rtions of the evaluation. 3-D MIP images reconstructed by the technologist are reviewed on the compu ter in the coronal and sagittal planes. Contrast used:70 mL of Isovue 370 with IV Contrast, (none if empty) CT DLP: 158.6 mGycm, Automated exposure control for dose reduction was used. FINDINGS: No persistent filling defects are evident to suggest an acute pulmonary embolism. No mediastinal or hilar adenopathy enlarged by CT criteria is evident. The ascending aorta diameter at the level of the main pulmonary artery is 3.1 cm. The main pulmonary artery diameter at the bifurcation is 2.5 cm. 22 Advanced emphysematous changes are present. Large bulla blebs are at the left anterior apex. Consolid ation is developing within the right upper lung field. There is persistent consolidation at the left apex. There is developing irregular consolidation posterior medial right midlung. This measures appro ximately 2.0 x 4.0 cm has irregular margins. -BE considered. Posterior bilateral thickening is present large bulla are present at the right lung b ase Limited CT sections were through the upper abdomen. There may be reflux into the hepatic vascular sy stem IMPRESSION: 1. No acute pulmonary embolism. 2. Developing right upper lobe, posterior medial right midlung, and bibasilar densities. Findings are nonspecific and include pneumonia and neoplasm . Additional workup recommended [facility], , 09/02/2024 10:04 AM
[2024-09-02] MEDS ORDERED: PNEUMONIA PROTOCOL UTILIZED 1 EACH MISC PO PRN (10:55)
[2024-09-02] MEDS ORDERED: IPRATROPIUM-ALBUTEROL 3 ML NEB INHALATION PRN (10:55)
[2024-09-02] MEDS: DILTIAZEM DRIP BOLUS FROM BAG 1 MG SOLN IV ONE (11:25)
[2024-09-02] MEDS: AZITHROMYCIN 500 MG in SODIUM CHLORIDE 0.9% 250 ML IVPB STA (11:26)
[2024-09-02] MEDS: DILTIAZEM 125 MG in SODIUM CHLORIDE 0.9% 100 ML IV SCH (11:26)
[2024-09-02] MEDS: SODIUM CHLORIDE 0.9% 1,000 ML IV SCH (11:34)
--- NOTE | 2024-09-02 14:37 | P.CRDCN ---
History of Present Illness History of present illness: HISTORY OF PRESENT ILLNESS: This is a 63-year-old male with a past medical history significant for paroxysmal atrial fibrillation. Patient follows in the office with Dr. Jerome. We have been asked to see the patient in consultation for A-fib with RVR. Patient examined at the bedside in the emergency room. Patient presented to the hospital with a chief complaint of shortness of breath. Patient states he was diagnosed with pneumonia about 3 weeks ago. Patient denies any chest pain or pressure. Patient was found to be in A-fib with RVR. He was started on IV Cardizem. At the time of examination he remains in atrial fibrillation with a heart rate around 100. He is receiving a Cardizem infusion at 5 mg an hour. DIAGNOSTICS: - EKG reveals A-fib with RVR - Chest CTA: Negative for pulmonary embolism. Developing right upper lobe posterior medial right midlung and bibasilar densities. Findings are nonspecific and include pneumonia neoplasm. - Laboratory data: WBC 7.7. Hemoglobin 13.9. Platelet count 482. Sodium 134. Potassium 5.2. BUN 19. Creatinine 0.66. Troponin negative x 1. TSH 1.450. - Current home cardiac medications include metoprolol 25 mg twice a day - Most recent echocardiogram obtained in July 2020 revealing EF 55%, mild MR, mild TR -Patient underwent Lexiscan stress test in April 2024 which was negative for ischemia REVIEW OF SYSTEMS: At the time of my exam: CONSTITUTIONAL: Denies fever or chills. HEENT: Denies blurred vision, vision changes, or eye pain. Denies hemoptysis CARDIOVASCULAR: Denies chest pain. Denies orthopnea. Denies PND. Denies palpitations RESPIRATORY: Reports shortness of breath. GASTROINTESTINAL: Denies abdominal pain. Denies nausea or vomiting. HEMATOLOGIC: Denies bleeding disorders. GENITOURINARY: Denies any blood in urine. SKIN: Denies pruitis. Denies rash. PHYSICAL EXAM: VITAL SIGNS: Reviewed. GENERAL: Well-developed in no acute distress. HEENT: Head is normocephalic. Pupils are equal, round. Sclerae anicteric. Mucous membranes of the mouth are moist. Neck supple. No JVD or thyromegaly LUNGS: Respirations even and unlabored. Lungs essentially clear to auscultation bilaterally. HEART: Irregular rate and rhythm. S1 and S2 heard. ABDOMEN: Soft. Nondistended. Nontender. EXTREMITIES: Normal range of motion. No clubbing or cyanosis. Peripheral pulses intact. No lower extremity edema NEUROLOGIC: Awake and alert. Oriented x 3. ASSESSMENT: Shortness of breath Paroxysmal atrial fibrillation with RVR Recent diagnosis of pneumonia, 3 weeks ago per patient Chronic back pain Nicotine dependence PLAN: Resume home cardiac medications Continue telemetry monitoring Continue IV Cardizem. Wean as heart rate will tolerate Recommend short-term anticoagulation with Eliquis 5 mg twice a day If no lung neoplasm is suspected, consider eventual ablation Smoking cessation recommended. Patient to be referred to [place] quit line upon discharge. Further recommendations pending patient course Nurse practitioner note has been reviewed by physician. Signing provider agrees with the documented findings, assessment, and plan of care documented by WASHER OPERATOR as a scribe. Past Medical History Past Medical History: Atrial Fibrillation Additional Past Medical History / Comment(s): chronic back and neck pain History of Any Multi-Drug Resistant Organisms: None Reported Past Surgical History: Orthopedic Surgery Additional Past Surgical History / Comment(s): right hip surgery Past Anesthesia/Blood Transfusion Reactions: No Reported Reaction Past Psychological History: No Psychological Hx Reported Smoking Status: Current every day smoker Past Alcohol Use History: None Reported Past Drug Use History: Marijuana - Past Family History Father Family Medical History: Myocardial Infarction ([place]) Brother(s) Family Medical History: Myocardial Infarction ([place]) Medications and Allergies Home Medications Medication Instructions Recorded Confirmed Type Metoprolol Tartrate [Lopressor] 25 mg PO BID #60 tab 10/05/20 09/02/24 Rx oxyCODONE-APAP 5-325MG [Percocet 1 tab PO QID 09/02/24 09/02/24 History 5-325 mg] Allergies Allergy/AdvReac Type Severity Reaction Status Date / Time No Known Allergies Allergy Verified 09/02/24 12:00 Physical Exam Vitals: Vital Signs Temp Pulse Pulse Resp BP Pulse Ox 09/02/24 12:30 90 16 108/67 09/02/24 12:00 93 18 103/52 98 09/02/24 11:40 101 H 18 103/49 97 09/02/24 11:36 96 18 103/49 98 09/02/24 09:53 128 H 18 105/40 99 09/02/24 08:45 113 H 09/02/24 08:43 97.7 F 65 18 108/91 99 Intake and Output 09/01/24 09/02/24 09/02/24 22:59 06:59 14:59 Other: Weight 43.545 kg Results 09/02/24 09:08 09/02/24 09:08 Cardiac Enzymes 09/02/24 09/02/24 Range/Units 09:08 09:08 AST 29 (17-59) U/L Troponin I <0.012 (0.000-0.034) ng/mL Coagulation 09/02/24 Range/Units 09:08 PT 10.1 (10.0-12.5) sec APTT 26.2 (22.0-30.0) sec CBC 09/02/24 Range/Units 09:08 WBC 7.7 (3.8-10.6) k/uL RBC 4.89 (4.30-5.90) m/uL Hgb 13.9 (13.0-17.5) gm/dL Hct 43.8 (39.0-53.0) % Plt Count 482 H (150-450) k/uL Comprehensive Metabolic Panel 09/02/24 Range/Units 09:08 Sodium 134 L (137-145) mmol/L Potassium 5.2 H (3.5-5.1) mmol/L Chloride 94 L (98-107) mmol/L Carbon Dioxide 37 H (22-30) mmol/L BUN 19 (9-20) mg/dL Creatinine 0.66 (0.66-1.25) mg/dL Glucose 119 H (74-99) mg/dL Calcium 9.8 (8.4-10.2) mg/dL AST 29 (17-59) U/L ALT 22 (4-49) U/L Alkaline Phosphatase 146 H (38-126) U/L Total Protein 8.2 (6.3-8.2) g/dL Albumin 4.0 (3.5-5.0) g/dL Current Medications Generic Name Dose Route Start Last Admin Trade Name Freq PRN Reason Stop Dose Admin Albuterol/Ipratropium 3 ml 09/02/24 10:55 Ipratropium-Albuterol 3 Ml Neb INHALATION RT-Q4H PRN shortness of breath Azithromycin 500 mg 09/03/24 09:00 Azithromycin 500 Mg Tab PO 09/04/24 09:01 DAILY GABRIELA Protocol Diltiazem HCl 125 mg/ Sodium 125 mls @ 5 mls/hr 09/02/24 11:00 09/02/24 11:26 Chloride IV 5 mg/hr .Q24H GABRIELA 5 mls/hr Administration 5 MG/HR Sodium Chloride 1,000 mls @ 130 mls/hr 09/02/24 11:00 09/02/24 11:34 Saline 0.9% IV 130 mls/hr .Q7H42M GABRIELA Administration Ceftriaxone Sodium 2 gm/ 50 mls @ 100 mls/hr 09/03/24 09:00 Sodium Chloride IVPB 09/06/24 09:29 Q24HR GABRIELA Protocol Miscellaneous Information 1 each 09/02/24 10:55 Pneumonia Protocol Utilized 1 Each Misc PO ONCE PRN Per Protocol Intake and Output 09/01/24 09/02/24 09/02/24 22:59 06:59 14:59 Other: Weight 43.545 kg Patient Weight 09/03/24 06:59 Weight 43.545 kg 09/02/24 09:08 09/02/24 09:08
[2024-09-02] MEDS: APIXABAN 5 MG TAB PO SCH (22:00)
[2024-09-02] MEDS: METOPROLOL TARTRATE 25 MG TAB PO SCH (22:00)
[2024-09-03] MEDS: AZITHROMYCIN 500 MG TAB PO SCH (08:10)
--- NOTE | 2024-09-03 08:22 | XR ---
EXAMINATION TYPE: XR chest 1V portable DATE OF EXAM: 09/03/2024 5:22 AM COMPARISON: 10/19/2022. CLINICAL INDICATION: Male, 63 years old with history of pneumonia; [facility] TECHNIQUE: XR chest 1V portable Frontal view of the chest. FINDINGS: Lungs/Pleura: Increased consolidation in the right lung apex compared to 10/19/2022. Increased lucency in the lung apices and throughout the lungs. Prominent interstitial lung markings are seen scattered throughout the lungs. No evidence of focal consolidation, pneumothorax or pleural effusion. Pulmonary vascularity: Unremarkable. Heart/mediastinum: Cardiomediastinal silhouette is unremarkable. Musculoskeletal: No acute osseous pathology. IMPRESSION: 1. Gross consolidation changes in the right lung apex has be secondary to atelectasis and/or chronic scarring superimposed infection not excluded. 2. Moderate to severe interstitial lung disease with a component of COPD. [facility], , 09/03/2024 8:19 AM
--- NOTE | 2024-09-03 09:22 | P.PN ---
Subjective HISTORY OF PRESENT ILLNESS: This is a 63-year-old male with a past medical history significant for paroxysmal atrial fibrillation. Patient follows in the office with Dr. Jerome. We have been asked to see the patient in consultation for A-fib with RVR. Patient examined at the bedside in the emergency room. Patient presented to the hospital with a chief complaint of shortness of breath. Patient states he was diagnosed with pneumonia about 3 weeks ago. Patient denies any chest pain or pressure. Patient was found to be in A-fib with RVR. He was started on IV Cardizem. At the time of examination he remains in atrial fibrillation with a h eart rate around 100. He is receiving a Cardizem infusion at 5 mg an hour. DIAGNOSTICS: - EKG reveals A-fib with RVR - Chest CTA: Negative for pulmonary embolism. Developing right upper lobe posterior medial right midlung and bibasilar densities. Findings are nonspecific and include pneumonia neoplasm. - Laboratory data: WBC 7.7. Hemoglobin 13.9. Platelet count 482. Sodium 134. Potassium 5.2. BUN 19. Creatinine 0.66. Troponin negative x 1. TSH 1.450. - Current home cardiac medications include metoprolol 25 mg twice a day - Most recent echocardiogram obtained in July 2020 revealing EF 55%, mild MR, mild TR -Patient underwent Lexiscan stress test in April 2024 which was negative for ischemia 09/03/2024 Patient examined this morning in the emergency room. Patient currently denies chest pain or pressure. He denies shortness of breath. Patient has converted to sinus mechanism. His IV Cardizem has been discontinued. PHYSICAL EXAM: VITAL SIGNS: Reviewed. GENERAL: Well-developed in no acute distress. HEENT: Head is normocephalic. Pupils are equal, round. Sclerae anicteric. Mucous membranes of the mouth are moist. Neck supple. No JVD or thyromegaly LUNGS: Respirations even and unlabored. Lungs essentially clear to auscultation bilaterally. HEART: Regular rate and rhythm. S1 and S2 heard. ABDOMEN: Soft. Nondistended. Nontender. EXTREMITIES: Normal range of motion. No clubbing or cyanosis. Peripheral pulses intact. No lower extremity edema NEUROLOGIC: Awake and alert. Oriented x 3. ASSESSMENT: Shortness of breath Paroxysmal atrial fibrillation with RVR, currently maintaining sinus mechanism Recent diagnosis of pneumonia, 3 weeks ago per patient Chronic back pain Nicotine dependence PLAN: Resume home cardiac medications Continue telemetry monitoring Discontinue IV Cardizem Recommend short-term anticoagulation with Eliquis 5 mg twice a day Patient with significant amount of weight loss recently. BMI 14.6. Additionally CTA cannot exclude neoplasm. Continue with rate control strategy at this time. If no lung neoplasm is suspected, consider eventual ablation Smoking cessation recommended. Patient to be referred to [place] quit line upon discharge. Patient is stable from a cardiac perspective Further recommendations pending patient course Nurse practitioner note has been reviewed by physician. Signing provider agrees with the documented findings, assessment, and plan of care documented by SUMMONS SERVER as a scribe. Objective - Vital Signs Vital signs: Vital Signs Temp 97.8 F 09/03/24 05:15 Pulse 64 09/03/24 08:54 Resp 16 09/03/24 08:54 BP 103/57 09/03/24 08:54 Pulse Ox 96 09/03/24 08:54 FiO2 Intake & Output 09/02/24 09/03/24 09/03/24 18:59 06:59 18:59 Weight 43.545 kg - Labs CBC & Chem 7: 09/02/24 09:08 09/02/24 09:08 Labs: Abnormal Lab Results - Last 24 Hours (Table) 09/02/24 Range/Units 09:08 Sodium 134 L (137-145) mmol/L Potassium 5.2 H (3.5-5.1) mmol/L Chloride 94 L (98-107) mmol/L Carbon Dioxide 37 H (22-30) mmol/L Glucose 119 H (74-99) mg/dL Alkaline Phosphatase 146 H (38-126) U/L
[2024-09-03 21:36] VITALS: BP 98/61; PULSE 62; RESP 18; TEMP 97.6
[2024-09-03] MEDS ORDERED: oxyCODONE-APAP 5-325MG 1 EACH TAB PO SCH (22:00)
--- NOTE | 2024-09-04 01:47 | HP ---
HISTORY AND PHYSICAL CHIEF COMPLAINT: Atrial fib with rapid ventricular response, shortness of breath, COPD, and pneumonitis. HISTORY OF PRESENT ILLNESS: This poorly nourished and debilitated 63-year-old male presented to the emergency room with palpitations and a rapid heart rate around 140 beats per minute. He was in atrial fibrillation. He was started on Cardizem drip and his pulse came down nicely and he converted to sinus rhythm. His x-ray suggested bilateral bronchial pneumonia and his pulse ox was 87%. REVIEW OF SYSTEMS: He denies cough, hemoptysis, chills, chest pain, etc. Past medical history, family history, personal and social histories are all otherwise unremarkable and noncontributory. PHYSICAL EXAMINATION: VITAL SIGNS: Blood pressure is 122/74 with a pulse of 88, respirations of 38, and he is afebrile. GENERAL: He appeared to be poorly nourished and dehydrated. He appeared cachectic. HEAD, EARS, EYES, NOSE, MOUTH, AND THROAT: Seem to be normal. NECK: Neck veins are not distended. CHEST: Demonstrated very poor breath sounds due to his emphysema. CARDIAC: Sounds normal. No murmurs or extra sounds. ABDOMEN: Scaphoid. EXTREMITIES: Unremarkable. NEUROLOGIC: He is intact. ASSESSMENT: He is admitted to the hospital with diagnoses of, 1. New onset atrial fibrillation with rapid ventricular response. 2. Bilateral bronchopneumonia. 3. Chronic obstructive pulmonary disease. PLAN: 1. Bedrest. 2. IV fluids and IV antibiotics. 3. Updrafts. MMODL / IJN: [id number] /
--- NOTE | 2024-09-04 02:44 | PN ---
PROGRESS NOTE DATE OF SERVICE: 09/03/2024 CHIEF COMPLAINT: Atrial fibrillation and pneumonitis. HISTORY OF PRESENT ILLNESS: This gentleman is doing a little bit better. The patient's heart rate has dropped down and he is in sinus currently. He is still short of breath. PHYSICAL EXAMINATION: LUNGS: He has poor breath sounds bilaterally due to his emphysema. CARDIAC: Normal. ABDOMEN: Flat and soft. IMPRESSION: 1. Atrial fibrillation with rapid ventricular rate. 2. Pneumonitis. 3. Chronic obstructive pulmonary disease. 4. Failure to thrive. PLAN: Continue with IV fluids and continue to watch his cardiac arrhythmia on telemetry. MMODL / IJN: [id number] /
[2024-09-04] MEDS ORDERED: IPRATROPIUM-ALBUTEROL 3 ML NEB INHALATION SCH (08:00)
[2024-09-04] MEDS ORDERED: METOPROLOL SUCCINATE (ER) 50 MG TAB.ER.24H PO SCH (09:00)
--- NOTE | 2024-09-06 01:43 | HP ---
HISTORY AND PHYSICAL CHIEF COMPLAINT: Rapid heartbeat, shortness of breath, and bronchial pneumonia. HISTORY OF PRESENT ILLNESS: This is a somewhat debilitated gentleman, who came to the emergency room with shortness of breath and was found to have atrial fibrillation with rapid ventricular response around 140 beats per minute. Started on Cardizem and he converted in the emergency room. He was also found to have bilateral bronchial pneumonia. REVIEW OF SYSTEMS: He denies any headaches, chest pain, abdominal pain, vomiting, fever, chills, etc. Past medical history, family history, and personal and social histories were all otherwise unremarkable and noncontributory. PHYSICAL EXAMINATION: VITAL SIGNS: Normal. CHEST: Demonstrates poor breath sounds bilaterally. CARDIAC: Demonstrated atrial fibrillation with rapid ventricular response. ABDOMEN: Soft, nontender. EXTREMITIES: Normal. IMPRESSION: 1. Atrial fibrillation with rapid ventricular response. 2. Chronic obstructive pulmonary disease. 3. Bilateral bronchial pneumonia. PLAN: 1. Bedrest. 2. IV fluids. 3. Updrafts and IV antibiotics. 4. Consult Cardiology. MMODL / IJN: [id number] /
--- NOTE | 2024-09-06 06:38 | DS ---
DISCHARGE SUMMARY CHIEF COMPLAINT: Atrial fibrillation with RVR, chest pain, and COPD. HISTORY OF PRESENT ILLNESS AND PHYSICAL EXAM: Details of this man's history and physical can be found in the initial workup. LABORATORY STUDIES: While he was in the hospital, he had laboratory studies, details of which can be found in the laboratory section of his chart. COURSE IN THE HOSPITAL: After admission, he was placed on bedrest and converted to sinus rhythm. He was seen by Cardiology. He was doing well and remains stable and it was felt that he could be discharged home on the . He will follow up in the office in several days. FINAL DIAGNOSES: 1. Atrial fibrillation with rapid ventricular response. 2. Community-acquired pneumonia. 3. Chronic obstructive pulmonary disease. 4. History of protein-calorie malnutrition. OPERATIONS: None. CONSULTATIONS: Cardiology. MMODL / IJN: [id number] /
== END 2024-09-04 01:30 | disposition left against medical advice (07) | DRG 308 ==
LOC: EC 08:39 → 3SCARD 10:50 → 4SSUR 09-03 11:36
PROVIDERS: ADMIT Family Medicine; ATTEND Family Medicine
DX: I48.0 Paroxysmal atrial fibrillation (principal); J18.0 Bronchopneumonia, unspecified organism; J44.0 Chronic obstructive pulmonary disease with (acute) lower respiratory infection; R62.7 Adult failure to thrive; G89.29 Other chronic pain; M54.9 Dorsalgia, unspecified; F17.210 Nicotine dependence, cigarettes, uncomplicated; M54.2 Cervicalgia; J98.4 Other disorders of lung; F17.200 Nicotine dependence, unspecified, uncomplicated; Z79.01 Long term (current) use of anticoagulants; Z79.899 Other long term (current) drug therapy; Z82.49 Family history of ischemic heart disease and other diseases of the circulatory system; Z86.711 Personal history of pulmonary embolism; Z53.29 Procedure and treatment not carried out because of patient's decision for other reasons
CPT/HCPCS: 36415; 71045; 71275; 80053; 83735; 84443; 84484; 85025; 85610; 85730; 87040; 87449; 93005; 96361; 96365; 96366; 96367; 96368; 99285